=== PATIENT | male | born 1965 | race Caucasian/White ===

== ENCOUNTER 2016-12-20 21:58 | Emergency (ER) | payer SELFPAY ==
[~2016-12-20] VITALS: Ht 182.9 cm; Wt 95.5 kg
[~2016-12-20 21:58] MED LIST: HYDR200T42 PO; PRED50TA PO
[2016-12-20 22:01] VITALS: BP 134/77; PULSE 100; RESP 16; TEMP 98.9; O2SAT 100
[2016-12-21 00:08] VITALS: O2SAT 98
--- NOTE | 2016-12-21 00:08 | PD ---
HPI Chief Complaint: Skin Problem Time Seen by Provider: 23:46 Travel History International Travel<30 days: No Contact w/Intl Traveler<30days: No Traveled to known affect area: No History of Present Illness HPI 51-year-old male complains of pain swelling redness to the right elbow. Patient states that he injured himself by pulling on a lawnmower a week ago. Patient states that he has increasing redness swelling tenderness the right elbow since then. Patient states that he has a lesion that popped open the right elbow for the past week also. Patient states that he has an open lesion in the right elbow in the past. Patient denies any fever chills.. Patient denies any puncture wound to right elbow. Patient is up-to-date with TD booster. PFSH Past Medical History Immunizations Current: Yes Tetanus Vaccination: < 5 Years Influenza Vaccination: Yes Past Surgical History Other Surgery: Yes (REMOVED A LITER OF FLUID FROM AROUND HEART) Social History Alcohol Use: No Tobacco Use: Yes (1 PPD) Substance Use: Yes ("COKE" ABUSE-PT STS HE DID A LINE TONIGHT) Allergies-Medications (Allergen,Severity, Reaction): Coded Allergies: No Known Allergies (Verified , 12/20/16) Reported Meds & Prescriptions Reported Meds & Active Scripts Active Review of Systems General / Constitutional: No: Fever Eyes: No: Visual changes HENT: No: Headaches Cardiovascular: No: Chest Pain or Discomfort Respiratory: No: Shortness of Breath Gastrointestinal: No: Abdominal Pain Genitourinary: No: Dysuria Musculoskeletal: Positive: Edema, Pain Skin: No Rash Neurologic: No: Weakness Psychiatric: No: Depression Endocrine: No: Polydipsia Hematologic/Lymphatic: No: Easy Bruising Physical Exam Narrative GENERAL: Well-nourished, well-developed patient. SKIN: Focused skin assessment warm/dry. HEAD: Normocephalic. EYES: No scleral icterus. No injection or drainage. NECK: Supple, trachea midline. No JVD or lymphadenopathy. CARDIOVASCULAR: Regular rate and rhythm without murmurs, gallops, or rubs. RESPIRATORY: Breath sounds equal bilaterally. No accessory muscle use. GASTROINTESTINAL: Abdomen soft, non-tender, nondistended. MUSCULOSKELETAL: No cyanosis, or edema. BACK: Nontender without obvious deformity. No CVA tenderness. Patient has redness swelling edema with mild tenderness on the right elbow. Limited range of motion of the elbow secondary to pain. Small puncture wound noted was aspect the right elbow joint. Clear discharge noted. Sensorimotor function distally intact. Data Data Last Documented VS Vital Signs Date Time Temp Pulse Resp B/P (MAP) Pulse Ox O2 Delivery O2 Flow Rate FiO2 12/21/16 00:08 98 Room Air 12/20/16 22:01 98.9 100 16 Orders Orders Complete Blood Count With Diff (12/20/16 23:52) Basic Metabolic Panel (Bmp) (12/20/16 23:52) Blood Culture (12/20/16 23:52) Iv Access Insert/Monitor (12/20/16 23:52) Ecg Monitoring (12/20/16 23:52) Oximetry (12/20/16 23:52) Elbow, Limited (Ap&Lat) (12/20/16 23:52) Wound Culture And Gram Stain (12/20/16 23:53) Labs Laboratory Tests Test 12/20/16 23:59 White Blood Count 11.9 TH/MM3 Red Blood Count 4.03 MIL/MM3 Hemoglobin 12.0 GM/DL Hematocrit 35.2 % Mean Corpuscular Volume 87.3 FL Mean Corpuscular Hemoglobin 29.7 PG Mean Corpuscular Hemoglobin Concent 34.0 % Red Cell Distribution Width 13.3 % Platelet Count 502 TH/MM3 Mean Platelet Volume 6.0 FL Neutrophils (%) (Auto) 71.1 % Lymphocytes (%) (Auto) 14.7 % Monocytes (%) (Auto) 5.6 % Eosinophils (%) (Auto) 7.9 % Basophils (%) (Auto) 0.7 % Neutrophils # (Auto) 8.5 TH/MM3 Lymphocytes # (Auto) 1.8 TH/MM3 Monocytes # (Auto) 0.7 TH/MM3 Eosinophils # (Auto) 0.9 TH/MM3 Basophils # (Auto) 0.1 TH/MM3 CBC Comment DIFF FINAL Differential Comment Blood Urea Nitrogen 6 MG/DL Creatinine 0.74 MG/DL Random Glucose 95 MG/DL Calcium Level 9.0 MG/DL Sodium Level 125 MEQ/L Potassium Level 4.0 MEQ/L Chloride Level 90 MEQ/L Carbon Dioxide Level 27.2 MEQ/L Anion Gap 8 MEQ/L Estimat Glomerular Filtration Rate 112 ML/MIN MDM Medical Decision Making Medical Screen Exam Complete: Yes Emergency Medical Condition: Yes Interpretation(s) Last Impressions Elbow X-Ray 12/20/16 [id number] Signed Impressions: Service Date/Time: Wednesday, December 21, 2016 00:06 - CONCLUSION: Prominent soft tissue swelling primarily in the region of the posterior elbow. No subcutaneous emphysema or radiopaque foreign bodies. No evidence for significant bony erosion. Hany Oneill MD 02 43 AM. He received WBC 11.9. Hemoglobin 12.0 hematocrit 35.2. Platelet 502. 71 neutrophil. Sodium 125. Differential Diagnosis Differential diagnosis including cellulitis, abscess, septic joint. Narrative Course 51-year-old male with redness swelling tenderness right elbow and a small draining lesion on the right elbow. Vancomycin 1 g IV given. Diagnosis Primary Impression: Cellulitis of right elbow Patient Instructions: General Instructions Additional Instructions: Take antibiotics as directed. Wound care daily. Follow-up with personal physician. Return if increasing redness swelling or worse. Med/Other Pt SpecificInfo: Prescription(s) given Scripts Clindamycin (Clindamycin) 150 Mg Cap 2 TAB PO Q6H for Infection, #80 CAP 0 Refills Prov: Parish Turcios MD 12/21/16 Sulfamethoxazole-Trimethoprim (Bactrim DS) 800-160 Mg Tab 1 TAB PO BID for Infection, #20 TAB 0 Refills Prov: Parish Turcios MD 12/21/16 Disposition: 01 DISCHARGE HOME Condition: Stable Parish Turcios MD Dec 21, 2016 00:08
[2016-12-21 00:16] LABS: AUTOMATED NEUTROPHIL # 8.5 TH/MM3 (1.8-7.7); BASOPHIL # 0.1 TH/MM3 (0-0.2); BASOPHIL % 0.7 % (0.0-2.0); EOSINOPHIL # 0.9 TH/MM3 (0-0.4); EOSINOPHIL % 7.9 % (0.0-4.0); HEMATOCRIT 35.2 % (39.0-51.0); HEMO FLAGS DIFF FINAL; LYMPH % 14.7 % (9.0-44.0); LYMPHOCYTE # 1.8 TH/MM3 (1.0-4.8); MEAN CELL VOLUME 87.3 FL (80.0-100.0); MEAN CORPUSCULAR HEMOGLOBIN 29.7 PG (27.0-34.0); MONO % 5.6 % (0.0-8.0); NEUT % 71.1 % (16.0-70.0); PLATELET COUNT 502 TH/MM3 (150-450); RED BLOOD COUNT 4.03 MIL/MM3 (4.50-5.90); RED CELL DISTRIBUTION WIDTH 13.3 % (11.6-17.2); WHITE BLOOD COUNT 11.9 TH/MM3 (4.0-11.0)
[2016-12-21 00:41] LABS: BICARBONATE 27.2 MEQ/L (21.0-32.0)
--- NOTE | 2016-12-21 00:53 | RADRPT ---
EXAM DATE/TIME: 12/21/2016 00:06 [facility] COMPARISON: No previous studies available for comparison. INDICATIONS : Redness and swelling right elbow. MEDICAL HISTORY : None. SURGICAL HISTORY : None. ENCOUNTER: Initial ACUITY: 3 days PAIN SCORE: 5/10 LOCATION: Right elbow. FINDINGS: Prominent soft tissue swelling is noted primarily in the region of the posterior elbow. No significan t radiopaque foreign bodies or subcutaneous emphysema. Osseous structures appear intact without evide nce for a significant erosive change or acute fracture. No significant joint effusion. CONCLUSION: Prominent soft tissue swelling primarily in the region of the posterior elbow. No subcutaneous emphys mi or radiopaque foreign bodies. No evidence for significant bony erosion. Hany Oneill MD on December 21, 2016 at 0:50 Board Certified Radiologist. This report was verified electronically.
[2016-12-21] MEDS ORDERED: CLIN1CAP5 PO (02:50)
[2016-12-21] MEDS ORDERED: BACT800T5 PO (02:50)
[2016-12-21] MEDS ORDERED: SULFAMETHOXAZOLE-TRIMETHOPRIM DS 800-160 MG TAB PO ONE (03:00)
[2016-12-21] MEDS ORDERED: CLINDAMYCIN 150 MG CAP PO ONE (03:00)
== END 2016-12-21 03:31 | disposition home or self-care (01) ==
LOC: NEPC 21:58
DX: L03.113 Cellulitis of right upper limb (principal); F17.200 Nicotine dependence, unspecified, uncomplicated
CPT/HCPCS: 73070; 80048; 85025; 87040; 87070; 99284

== ENCOUNTER 2017-05-31 21:21 | Inpatient (IN) | payer SELFPAY ==
[~2017-05-31] VITALS: Ht 182.9 cm; Wt 100.0 kg
[2017-05-31 21:21] VITALS: BP 179/93; PULSE 121; RESP 20; TEMP 98.8; O2SAT 99
[~2017-05-31 21:21] MED LIST changes: +BACT800T5 PO; +CLIN150C14 PO; -HYDR200T42 PO; -PRED50TA PO
[2017-05-31] MEDS ORDERED: SODIUM CHLOR 0.9% 1000 ML INJ 1,000 ML IV ONE (21:45)
[2017-05-31] MEDS ORDERED: methylPREDNISolone SOD SUCC 125 MG/2 ML VIAL IV PUSH ONE (21:45)
[2017-05-31 22:13] LABS: AUTOMATED NEUTROPHIL # 3.4 TH/MM3 (1.8-7.7); BASOPHIL % 0.9 % (0.0-2.0); EOSINOPHIL # 0.4 TH/MM3 (0-0.4); EOSINOPHIL % 6.2 % (0.0-4.0); HEMATOCRIT 30.5 % (39.0-51.0); LYMPHOCYTE # 1.6 TH/MM3 (1.0-4.8); MEAN CELL VOLUME 83.7 FL (80.0-100.0); MEAN CORPUSCULAR HGB CONC 35.9 % (32.0-36.0); MEAN PLATELET VOLUME 5.6 FL (7.0-11.0); MONO % 7.4 % (0.0-8.0); MONOCYTE # 0.4 TH/MM3 (0-0.9); NEUT % 57.5 % (16.0-70.0); PLATELET COUNT 485 TH/MM3 (150-450); RED BLOOD COUNT 3.65 MIL/MM3 (4.50-5.90); RED CELL DISTRIBUTION WIDTH 14.1 % (11.6-17.2); WHITE BLOOD COUNT 5.9 TH/MM3 (4.0-11.0)
--- NOTE | 2017-05-31 22:27 | RADRPT ---
EXAM DATE/TIME: 05/31/2017 22:06 [facility] COMPARISON: ELBOW RIGHT LIMITED (AP & LAT), December 21, 2016, 0:06. INDICATIONS : Right elbow pain and swelling with no known injury, MEDICAL HISTORY : None. SURGICAL HISTORY : None. ENCOUNTER: Initial ACUITY: 3 days PAIN SCORE: 10/10 LOCATION: Right elbow. FINDINGS: There is extensive soft tissue swelling which has progressed since the prior examination diffusely. T here is destruction of the proximal ulna near the articulation of the capitellum some destruction of the medial epicondyle near the joint space as well. Possibility of septic arthritis should be enterta ined. CONCLUSION: Significant worsening of soft tissue swelling since the prior examination with interval development o f lytic destructive lesions of the proximal ulna and capitellum and the possibility of septic arthrit is should be entertained in the appropriate clinical setting. Malcom Gonzalez MD on May 31, 2017 at 22:23 Board Certified Radiologist. This report was verified electronically.
[2017-05-31 22:31] LABS: ALBUMIN 3.2 GM/DL (3.4-5.0); ALT (GPT) 9 U/L (12-78); AST (GOT) 11 U/L (15-37); BLOOD UREA NITROGEN 6 MG/DL (7-18); CHLORIDE 90 MEQ/L (98-107); CREATININE 0.64 MG/DL (0.60-1.30); GLOMERULAR FILTRATION RATE 132 ML/MIN (>89); GLUCOSE,RANDOM 92 MG/DL (74-106); SODIUM (NA) 126 MEQ/L (136-145)
--- NOTE | 2017-05-31 22:37 | PD ---
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 Patient denies numbness or tingling. He states that he often had a flare of Still's disease and this elbow but states that he has been increasingly weak in the joint over the last few days. He endorses daily fevers. He denies nausea, vomiting. He is not currently taking any medications. He endorses occasional alcoholic drinks, occasional cocaine use and is a current cigarette smoker. PFSH Past Medical History Asthma: Yes Immunizations Current: Yes Past Surgical History Other Surgery: Yes (REMOVED A LITER OF FLUID FROM AROUND HEART) Social History Alcohol Use: No Tobacco Use: Yes (1 PPD) Substance Use: Yes ("COKE" -PT STS HE DID A LINE YESTERDAY) Allergies-Medications (Allergen,Severity, Reaction): Coded Allergies: No Known Allergies (Verified Allergy, Unknown, 05/31/17) Reported Meds & Prescriptions Reported Meds & Active Scripts Active Clindamycin (Clindamycin HCl) 150 Mg Cap 2 Tab PO Q6H Bactrim DS (Sulfamethoxazole-Trimethoprim) 800-160 Mg Tab 1 Tab PO BID Review of Systems Except as stated in HPI: all other systems reviewed are Neg Physical Exam Narrative GENERAL: Well-nourished, well-developed white male in no acute distress. SKIN: Focused skin assessment warm/dry. Patchy erythematous blanching plaques over the chest and shoulders. HEAD: Normocephalic. EYES: No scleral icterus. No injection or drainage. NECK: Supple, trachea midline. No JVD or lymphadenopathy. CARDIOVASCULAR: Regular rate and rhythm without murmurs, gallops, or rubs. RESPIRATORY: Breath sounds equal bilaterally. No accessory muscle use. GASTROINTESTINAL: Abdomen soft, non-tender, nondistended. MUSCULOSKELETAL: No cyanosis, or edema. FOCUSED RIGHT UPPER EXTREMITY EXAM: 2+ radial pulse. The elbow is warm, erythematous, tender. Patient is unable to fully extend the joint. He is guarding the elbow, using the opposite hand to move the right arm. BACK: Nontender without obvious deformity. No CVA tenderness. Data Data Last Documented VS Vital Signs Date Time Temp Pulse Resp B/P (MAP) Pulse Ox O2 Delivery O2 Flow Rate FiO2 05/31/17 22:59 84 18 177/86 (116) 99 Room Air 05/31/17 21:21 98.8 Orders Orders Complete Blood Count With Diff (05/31/17 21:41) Iv Access Insert/Monitor (05/31/17 21:41) Comprehensive Metabolic Panel (05/31/17 21:41) Westergren Sedimentation Rate (05/31/17 21:41) C-Reactive Protein (Crp) (05/31/17 21:41) Lactic Acid (05/31/17 21:41) Elbow, Complete (4 Vws) (05/31/17 21:41) Ice/Cold Pack (05/31/17 21:41) Drug Screen, Random Urine (05/31/17 21:41) Methylprednisolone So Succ Inj (Solumedr (05/31/17 21:45) Sodium Chlor 0.9% 1000 Ml Inj (Ns 1000 M (05/31/17 21:45) Sepsis Workup Initiated (05/31/17 21:41) Blood Culture (05/31/17 22:33) Vancomycin Inj (Vancomycin Inj) (05/31/17 22:45) Morphine Inj (Morphine Inj) (05/31/17 23:00) Piperacil-Tazo 4.5 Gm Premix (Zosyn 4.5 (05/31/17 23:00) Consult Rheumatology (05/31/17 ) Consult Orthopedic (05/31/17 ) Admit Order (Ed Use Only) (05/31/17 23:19) Labs Laboratory Tests Test 05/31/17 22:00 White Blood Count 5.9 TH/MM3 Red Blood Count 3.65 MIL/MM3 Hemoglobin 11.0 GM/DL Hematocrit 30.5 % Mean Corpuscular Volume 83.7 FL Mean Corpuscular Hemoglobin 30.0 PG Mean Corpuscular Hemoglobin Concent 35.9 % Red Cell Distribution Width 14.1 % Platelet Count 485 TH/MM3 Mean Platelet Volume 5.6 FL Neutrophils (%) (Auto) 57.5 % Lymphocytes (%) (Auto) 28.0 % Monocytes (%) (Auto) 7.4 % Eosinophils (%) (Auto) 6.2 % Basophils (%) (Auto) 0.9 % Neutrophils # (Auto) 3.4 TH/MM3 Lymphocytes # (Auto) 1.6 TH/MM3 Monocytes # (Auto) 0.4 TH/MM3 Eosinophils # (Auto) 0.4 TH/MM3 Basophils # (Auto) 0.0 TH/MM3 CBC Comment DIFF FINAL Differential Comment Erythrocyte Sedimentation Rate 109 mm/hr Blood Urea Nitrogen 6 MG/DL Creatinine 0.64 MG/DL Random Glucose 92 MG/DL Total Protein 7.9 GM/DL Albumin 3.2 GM/DL Calcium Level 9.0 MG/DL Alkaline Phosphatase 99 U/L Aspartate Amino Transf (AST/SGOT) 11 U/L Alanine Aminotransferase (ALT/SGPT) 9 U/L Total Bilirubin 0.3 MG/DL Sodium Level 126 MEQ/L Potassium Level 4.0 MEQ/L Chloride Level 90 MEQ/L Carbon Dioxide Level 28.0 MEQ/L Anion Gap 8 MEQ/L Estimat Glomerular Filtration Rate 132 ML/MIN Lactic Acid Level 0.7 mmol/L C-Reactive Protein 11.00 MG/DL [facility] Medical Decision Making Medical Screen Exam Complete: Yes Emergency Medical Condition: Yes Differential Diagnosis Cellulitis versus sepsis versus bursitis versus Still's disease versus gout versus septic arthritis versus other Narrative Course 52-year-old male with PMH of Still's disease presents to the ED for evaluation one-week history of warm, tender erythema and limited range of motion of the right elbow. Patient afebrile, pulse 121 on presentation. Physical exam reveals the right elbow is warm, erythematous, edematous, tender to palpation. Patient is unable to extend the arm to 0. He is guarding the arm and unwilling to attempt range of motion. He uses the left hand to move the right arm. IV was established. Patient was administered IV Solu-Medrol, 1 L normal saline, 4 mg morphine IV. CBC: WBC 5.9, hemoglobin 11 CMP sodium 126, chloride 90. BUN 6, creatinine 0.64. Lactic acid 0.7. C-reactive protein 11.0. Sedimentation rate: Pending X-ray right elbow: Significant worsening of soft tissue swelling since the prior exam with interval development of lytic distractive lesions of the proximal ulna and capitulum and the possibility of septic arthritis should be entertained in the appropriate clinical setting. I discussed the results of the workup with the patient. He is agreeable to admission. Blood cultures were obtained. Patient was administered IV Zosyn and vancomycin. Consult placed with Rheumatology. Consult placed with Orthopedics. I spoke with Dr. Castaneda who agrees to accept the patient to the medicine service. Please see medicine notes for disposition. Meena Luna May 31, 2017 22:37
[2017-05-31 22:38] LABS: ALKALINE PHOSPHATASE 99 U/L (45-117); TOTAL BILIRUBIN ADULT 0.3 MG/DL (0.2-1.0); TOTAL PROTEIN 7.9 GM/DL (6.4-8.2)
[2017-05-31] MEDS ORDERED: VANCOMYCIN INJ 1,000 MG in SODIUM CHLOR 0.9% 250 ML INJ 250 ML IV ONE (22:45)
[2017-05-31 22:59] VITALS: BP 177/86; PULSE 84; RESP 18; O2SAT 99
[2017-05-31] MEDS ORDERED: MORPHINE SULFATE 2 MG/ML INJ IV PUSH ONE (23:00)
[2017-05-31] MEDS ORDERED: PIPERACIL-TAZO 4.5 GM PREMIX 100 ML IV ONE (23:00)
--- NOTE | 2017-05-31 23:35 | HHI.HP ---
[facility] No Primary Care Physician Admission Diagnosis cellulitis right elbow Diagnoses: Chief Complaint: right elbow pain and redness Travel History International Travel<30 Days: No Contact w/Intl Traveler <30 Da: No Traveled to Known Affected Are: No History of Present Illness 52 y/o male with a history of Stills disease (not on medication) presented to the ED with complaints of right elbow swelling and tenderness. He states for the last week his symptoms have become worse. He states the pain to his right elbow is throbbing, constant, 8/10, worse with movement with radiation up his arm. No associated symptoms and pain medications has helped. He has had fever and chills at home. He does not take medication for his stills disease due to lack of insurance. He state Plaquenil use to help but it was making his eye sight bad so he stopped tacking it. He denies any chest pain, or sob. Review of Systems Except as stated in HPI: all other systems reviewed are Neg Past Family Social History Past Medical History Stills disease Past Surgical History left hand surgery Reported Medications Reported Meds & Active Scripts Active Clindamycin (Clindamycin HCl) 150 Mg Cap 2 Tab PO Q6H Bactrim DS (Sulfamethoxazole-Trimethoprim) 800-160 Mg Tab 1 Tab PO BID Allergies: Coded Allergies: No Known Allergies (Verified Allergy, Unknown, 05/31/17) Active Ordered Medications Current Medications Medications (Trade) Dose Ordered Sig/Dayne Route Start Time Stop Time Status Last Admin Vancomycin HCl 1000 mg/Sodium Chloride 250 ml @ 250 mls/hr ONCE ONCE IV 05/31/17 22:45 05/31/17 23:44 05/31/17 22:57 Family History Mom: DM, stomach cancer Dad: HTN, heart disease, DM Social History Tobacco use: 1 pack per week Alcohol use: Denies Illicit drug use: Denies Physical Exam Vital Signs Vital Signs Date Time Temp Pulse Resp B/P (MAP) Pulse Ox O2 Delivery O2 Flow Rate FiO2 05/31/17 22:59 84 18 177/86 (116) 99 Room Air 05/31/17 21:21 98.8 121 20 179/93 (121) 99 Room Air Physical Exam GENERAL: This is a well-nourished, well-developed patient, in no apparent distress. SKIN: Red raised hives on trunk, bilateral upper extremities and chest. HEAD: Atraumatic. Normocephalic. No temporal or scalp tenderness. EYES: Pupils equal round and reactive. Extraocular motions intact. ENT: Nose without bleeding, purulent drainage or septal hematoma. Airway patent. NECK: Trachea midline. No JVD or lymphadenopathy. CARDIOVASCULAR: Regular rate and rhythm without murmurs, gallops, or rubs. RESPIRATORY: Clear to auscultation. Breath sounds equal bilaterally. No wheezes , rales, or rhonchi. GASTROINTESTINAL: Abdomen soft, non-tender, nondistended. MUSCULOSKELETAL: Right elbow warm, red, edematous and tender. Unable to bend elbow, limited rom. NEUROLOGICAL: Awake and alert. Motor and sensory grossly within normal limits. Normal speech. Laboratory Laboratory Tests Test 05/31/17 22:00 White Blood Count 5.9 Red Blood Count 3.65 Hemoglobin 11.0 Hematocrit 30.5 Mean Corpuscular Volume 83.7 Mean Corpuscular Hemoglobin 30.0 Mean Corpuscular Hemoglobin Concent 35.9 Red Cell Distribution Width 14.1 Platelet Count 485 Mean Platelet Volume 5.6 Neutrophils (%) (Auto) 57.5 Lymphocytes (%) (Auto) 28.0 Monocytes (%) (Auto) 7.4 Eosinophils (%) (Auto) 6.2 Basophils (%) (Auto) 0.9 Neutrophils # (Auto) 3.4 Lymphocytes # (Auto) 1.6 Monocytes # (Auto) 0.4 Eosinophils # (Auto) 0.4 Basophils # (Auto) 0.0 CBC Comment DIFF FINAL Differential Comment Blood Urea Nitrogen 6 Creatinine 0.64 Random Glucose 92 Total Protein 7.9 Albumin 3.2 Calcium Level 9.0 Alkaline Phosphatase 99 Aspartate Amino Transf (AST/SGOT) 11 Alanine Aminotransferase (ALT/SGPT) 9 Total Bilirubin 0.3 Sodium Level 126 Potassium Level 4.0 Chloride Level 90 Carbon Dioxide Level 28.0 Anion Gap 8 Estimat Glomerular Filtration Rate 132 Lactic Acid Level 0.7 C-Reactive Protein 11.00 Date/Time Source Procedure Growth Status 05/31/17 22:50 Blood Line Aerobic Blood Culture Pending Received 05/31/17 22:50 Blood Line Anaerobic Blood Culture Pending Received Result Diagram: 05/31/17219905/31/172199 Imaging Last Impressions Elbow X-Ray 05/31/172140 Signed Impressions: Service Date/Time: Wednesday, May 31, 2017 22:06 - CONCLUSION: Significant worsening of soft tissue swelling since the prior examination with interval development of lytic destructive lesions of the proximal ulna and capitellum and the possibility of septic arthritis should be entertained in the appropriate clinical setting. MD Ernie Franco VTE Risk Assessment Caprinradha VTE Risk Assessment: No/Low Risk (score <= 1) Caprini Risk Assessment Model Point Value = 1 Point Value = 2 Point Value = 3 Point Value = 5 Age 41-60 Minor surgery BMI > 25 kg/m2 Swollen legs Varicose veins or History of unexplained or recurrent spontaneous Oral contraceptives or hormone replacement Sepsis (< 1 month) Serious lung disease, including pneumonia (< 1 month) Abnormal pulmonary function Acute myocardial infarction Congestive heart failure (< 1 month) History of inflammatory bowel disease Medical patient at bed rest Age 61-74 Arthroscopic surgery Major open surgery (> 45 min) Laparoscopic surgery (> 45 min) Malignancy Confined to bed (> 72 hours) Immobilizing plaster cast Central venous access Age >= 75 History of VTE Family history of VTE Factor V Leiden Prothrombin [id number] Lupus anticoagulant Anticardiolipin antibodies Elevated serum homocysteine Heparin-induced thrombocytopenia Other congenital or acquired thrombophilia Stroke (< 1 month) Elective arthroplasty Hip, pelvis, or leg fracture Acute spinal cord injury (< 1 month) Prophylaxis Regimen Total Risk Factor Score Risk Level Prophylaxis Regimen 0-1 Low Early ambulation 2 Moderate Order ONE of the following: *Sequential Compression Device (SCD) *Heparin 5000 units SQ BID 3-4 Higher Order ONE of the following medications: *Heparin 5000 units SQ TID *Enoxaparin/Lovenox 40 mg SQ daily (WT < 150 kg, CrCl > 30 mL/min) *Enoxaparin/Lovenox 30 mg SQ daily (WT < 150 kg, CrCl > 10-29 mL/min) *Enoxaparin/Lovenox 30 mg SQ BID (WT < 150 kg, CrCl > 30 mL/min) AND/OR *Sequential Compression Device (SCD) 5 or more Highest Order ONE of the following medications: *Heparin 5000 units SQ TID (Preferred with Epidurals) *Enoxaparin/Lovenox 40 mg SQ daily (WT < 150 kg, CrCl > 30 mL/min) *Enoxaparin/Lovenox 30 mg SQ daily (WT < 150 kg, CrCl > 10-29 mL/min) *Enoxaparin/Lovenox 30 mg SQ BID (WT < 150 kg, CrCl > 30 mL/min) AND *Sequential Compression Device (SCD) Assessment and Plan Problem List: (1) Septic arthritis ICD Code: M00.9 - Pyogenic arthritis, unspecified (2) 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 Right elbow pain suspect possible Septic arthritis with underlining stills disease CRP 11.0 Elbow x ray shows soft tissue swelling with interval development of lytic destructive lesions of the proximal ulna and capitellum and possibility of septic arthritis. -Consult orthopedics for recommendations -IV antibiotics: Zosyn and Vanco -Pain management with IV morphine and Toradol -IV solumedrol -CT arm ordered r/o abscess Still Disease, chronic -Consult placed for Rheumatology, but to my knowledge we do not have a insurance associate, patient will need follow up out patient. DVT prophylaxis: SCDs Discussed Condition With Patient, RN and Tori Loredo May 31, 2017 23:35
[2017-05-31] MEDS ORDERED: Vancomycin Consult Pharmacy 1 EA OTHER SCH (23:45)
[2017-05-31] MEDS ORDERED: NALOXONE HCL 0.4 MG/ML AMP IV PUSH PRN (23:45)
[2017-06-01 00:24] VITALS: BP 162/79; PULSE 81; RESP 20; TEMP 98; O2SAT 98
[2017-06-01] MEDS ORDERED: KETOROLAC TROMETHAMINE 30 MG/ML (IVP) VIAL IV PUSH PRN (00:45)
[2017-06-01] MEDS: MORPHINE SULFATE 2 MG/ML INJ IV PUSH PRN ×4 (03:45→21:52)
[2017-06-01] MEDS: FAMOTIDINE 20 MG/2 ML VIAL IV PUSH SCH ×2 (03:46→16:00)
[2017-06-01] MEDS: methylPREDNISolone SOD SUCC 40 MG/1 ML VIAL IV PUSH SCH ×4 (03:46→21:56)
[2017-06-01] MEDS: SODIUM CHLORIDE 0.9% FLUSH 10 ML FLUSH IV FLUSH PRN ×2 (03:46→06:00)
--- NOTE | 2017-06-01 03:57 | RADRPT ---
EXAM DATE/TIME: 06/01/2017 03:17 [facility] COMPARISON: ELBOW RIGHT COMPLETE (4 VWS), May 31, 2017, 22:06. ELBOW RIGHT LIMITED (AP & LAT), December, 0:06. INDICATIONS : Cellulitis right elbow. RADIATION DOSE: 21.88 CTDIvol (mGy) MEDICAL HISTORY : Cardiovascular disease. Stills disease SURGICAL HISTORY : None. ENCOUNTER: Initial ACUITY: 1 day PAIN SCALE: 5/10 LOCATION: Right elbow TECHNIQUE: Volumetric scanning of the forearm was performed. Using automated exposure control and adjustment of the mA and/or kV according to patient size, radiation dose was kept as low as reasonably achievable to obtain optimal diagnostic quality images. DICOM format image data is available electronically for review and comparison. FINDINGS: There are destructive changes of the distal humerus at the level of the trochlea, ostial lysis at the level of the radial head and capitellar articulation and the proximal ulna with fragmentation seen. There is diffuse subcutaneous edema and elbow joint effusion is noted. This is characteristic of sept ic arthritis until proven otherwise. There is a hypodense collection in the subcutaneous tissues prox imal forearm measuring 4.1 x 3.7 cm in AP and transverse dimension on image 38 of series 301, and 6.3 cm in sagittal dimension on sagittal image 19 of series 305. CONCLUSION: Destructive changes centered at the elbow joint with associated effusion, and this is characteristic of septic arthritis. There is cellulitis, subcutaneous edema, and an abscess of the proximal forearm. Ole Stallworth MD on June 01, 2017 at 3:51 Board Certified Radiologist. This report was verified electronically.
[2017-06-01 04:00] VITALS: BP 146/80; PULSE 87; RESP 15; TEMP 98.4; O2SAT 98
[2017-06-01] MEDS: PIPERACIL-TAZO 4.5 GM PREMIX 100 ML IV SCH ×3 (06:00→18:00)
[2017-06-01 07:21] LABS: BASOPHIL % 0.2 % (0.0-2.0); HEMATOCRIT 34.1 % (39.0-51.0); LYMPH % 13.3 % (9.0-44.0); LYMPHOCYTE # 0.5 TH/MM3 (1.0-4.8); MEAN CELL VOLUME 84.5 FL (80.0-100.0); MEAN CORPUSCULAR HEMOGLOBIN 29.8 PG (27.0-34.0); MEAN CORPUSCULAR HGB CONC 35.2 % (32.0-36.0); MEAN PLATELET VOLUME 5.8 FL (7.0-11.0); NEUT % 85.5 % (16.0-70.0); PLATELET COUNT 527 TH/MM3 (150-450); RED BLOOD COUNT 4.03 MIL/MM3 (4.50-5.90); RED CELL DISTRIBUTION WIDTH 14.4 % (11.6-17.2); WHITE BLOOD COUNT 3.5 TH/MM3 (4.0-11.0)
[2017-06-01 07:39] LABS: BICARBONATE 25.7 MEQ/L (21.0-32.0); CALCIUM 9.3 MG/DL (8.5-10.1); CREATININE 0.74 MG/DL (0.60-1.30)
[2017-06-01 08:00] VITALS: BP 153/75; PULSE 89; RESP 20; TEMP 98.2; O2SAT 98
[2017-06-01] MEDS: SODIUM CHLORIDE 0.9% FLUSH 10 ML FLUSH IV FLUSH SCH ×2 (08:36→21:57)
[2017-06-01] MEDS: VANCOMYCIN INJ 1,500 MG in SODIUM CHLORID 0.9% 500 ML INJ 500 ML IV SCH ×2 (10:28→21:53)
[2017-06-01] MEDS ORDERED: LACTATED RINGER'S 1000 ML INJ 1,000 ML IV ONE (12:00)
[2017-06-01] MEDS ORDERED: PROPOFOL 200 MG/20 ML AMP IV ONE (12:00)
[2017-06-01] MEDS ORDERED: LIDOCAINE HCL 1% PF 5 ML SYRINGE OTHER ONE (12:00)
[2017-06-01] MEDS ORDERED: ONDANSETRON HCL 4 MG/2 ML VIAL IV ONE (12:00)
[2017-06-01 12:57] VITALS: BP 159/88; PULSE 95; RESP 20; TEMP 99.1; O2SAT 96
--- NOTE | 2017-06-01 13:43 | PD.CONS ---
History of Present Illness Service Infectious disease Consult Requested By Dr Carline Duran Reason for Consult Evaluate patient with osteomyelitis right elbow Primary Care Physician No Primary Care Physician Diagnoses: History of Present Illness Patient seen and examined. Records reviewed. 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 His right elbow started having problem back in December 2016. He apparently had a little bit of injury, and developed redness and swelling. He presented to the emergency room at that time, and he was treated for cellulitis. Since that time he has had problem with range of motion in that elbow, and has had recurrent swelling and pain associated with it. He has not really had any diagnostic testing on that elbow. Patient also has had this skin rash that comes and goes as well and part of his still's disease. Recently probably in the last 1 week, he has developed swelling pain and decreased range of motion on his right elbow, as well as recurrence of his rash. No documented fevers. He also has been having problem with his right shoulder since he is not really doing moving much his right upper extremity. No specific respiratory complaints. No GI or any urinary complaints. Since presentation to the ED he has not had any fever. Imaging study in his right upper extremity showed findings of osteomyelitis, and there is also presence of an effusion in his right elbow. His WBC is 3.5. His sed rate is 109. Infectious disease consultation has been requested to assist with evaluation and treatment Review of Systems Constitutional: DENIES: Fever, Chills Eyes: DENIES: Eye pain Ears, nose, mouth, throat: DENIES: Nasal discharge, Oral lesions, Throat pain, Ear Pain Respiratory: DENIES: Cough, Shortness of breath Cardiovascular: DENIES: Chest pain, Palpitations, Dyspnea on Exertion Gastrointestinal: DENIES: Abdominal pain, Constipation, Diarrhea, Nausea, Vomiting Genitourinary: DENIES: Urgency, Hematuria Musculoskeletal: COMPLAINS OF: Joint pain, Stiffness, Joint Swelling, Back pain Integumentary: COMPLAINS OF: Rash Neurologic: DENIES: Localized weakness Psychiatric: DENIES: Hallucinations Past Family Social History Allergies: Coded Allergies: No Known Allergies (Verified Allergy, Unknown, 05/31/17) Past Medical History Still's disease Asthma Treatment for cellulitis in the right elbow December 2016 Past Surgical History Left hand surgery Active Ordered Medications Current Medications Medications (Trade) Dose Ordered Sig/Dayne Route Start Time Stop Time Status Last Admin (NS Flush) 2 ml UNSCH PRN IV FLUSH 05/31/17 23:45 06/01/17 06:00 (NS Flush) 2 ml BID IV FLUSH 06/01/17 09:00 06/01/17 08:36 (Narcan Inj) 0.4 mg UNSCH PRN IV PUSH 05/31/17 23:45 Pharmacy Profile Note 0 ml @ 0 mls/hr UNSCH OTHER 05/31/17 23:45 Piperacillin Sod/ Tazobactam Sod 100 ml @ 200 mls/hr Q6H IV 06/01/17 06:00 06/01/17 13:00 (Morphine Inj) 2 mg Q3H PRN IV PUSH 05/31/17 23:45 06/01/17 11:41 (SoluMEDROL INJ) 40 mg Q6H IV PUSH 06/01/17 03:00 06/01/17 08:36 (Toradol Inj) 30 mg Q6H PRN IV PUSH 06/01/17 00:45 (Pepcid Inj) 20 mg Q12H IV PUSH 06/01/17 04:00 06/01/17 03:46 Vancomycin HCl 1500 mg/Sodium Chloride 515 ml @ 250 mls/hr Q12H IV 06/01/17 10:00 06/01/17 10:28 Miscellaneous Information SPECIFIC LAB TO BE DRAWN:VANCOMYCIN TROUGH DATE TO... ONCE ONCE .XX 06/03/17 09:45 06/03/17 09:46 Family History DM Gastric CA Social History Tobacco use: 1 pack per week Alcohol use: Denies Illicit drug use: Denies Physical Exam Vital Signs Vital Signs Date Time Temp Pulse Resp B/P (MAP) Pulse Ox O2 Delivery O2 Flow Rate FiO2 06/01/17 12:57 99.1 95 20 159/88 (111) 96 06/01/17 08:00 98.2 89 20 153/75 (101) 98 06/01/17 04:00 98.4 87 15 146/80 (102) 98 06/01/17 00:24 98.0 81 20 162/79 (106) 98 05/31/17 22:59 84 18 177/86 (116) 99 Room Air 05/31/17 21:21 98.8 121 20 179/93 (121) 99 Room Air Physical Exam GENERAL: Patient is a well-nourished, well-developed male, awake and alert, not in respiratory distress. SKIN: Warm and moist. Has erythematous maculopapular rash in upper trunk front and back and UE. No ecchymoses and no evidence of embolic lesions. HEAD: Atraumatic. Normocephalic. No temporal wasting, or tenderness. EYES: [place] conjunctiva. No petechia or hemorrhage. Pupils equal, round and reactive to light. Extraocular movements full and intact. No scleral icterus. No injection or drainage. EARS, NOSE AND THROAT: Nose without bleeding or purulent nasal discharge. No sinus tenderness. Mucous membranes pink and moist. No oral lesions noted. No exudate. No oral thrush. NECK: Trachea midline. Supple and not tender, no meningeal signs CARDIOVASCULAR: Regular rate and rhythm. No murmurs, rubs or gallops heard RESPIRATORY: Clear to auscultation. Breath sounds equal bilaterally. No rales , wheezing or rhonchi ABDOMEN: Soft, non-tender, nondistended. Bowel sounds present and normoactive. No guarding. No rebound. No organomegaly. EXTREMITIES: No clubbing, cyanosis. RUE: pain in movement at elbow and shoulder joint. The elbow has effusion and there is cellulitis present; There is a one cm fluctuant area below the elbow. No calf tenderness. Well perfused and warm. NEUROLOGICAL: Awake and alert. Cranial nerves grossly intact. Motor grossly within normal limits. PSYCHIATRIC: Normal affect, calm and cooperative. LINE: No evidence of infection Laboratory Laboratory Tests Test 05/31/17 22:00 06/01/17 07:00 White Blood Count 5.9 3.5 Red Blood Count 3.65 4.03 Hemoglobin 11.0 12.0 Hematocrit 30.5 34.1 Mean Corpuscular Volume 83.7 84.5 Mean Corpuscular Hemoglobin 30.0 29.8 Mean Corpuscular Hemoglobin Concent 35.9 35.2 Red Cell Distribution Width 14.1 14.4 Platelet Count 485 527 Mean Platelet Volume 5.6 5.8 Neutrophils (%) (Auto) 57.5 85.5 Lymphocytes (%) (Auto) 28.0 13.3 Monocytes (%) (Auto) 7.4 1.0 Eosinophils (%) (Auto) 6.2 0.0 Basophils (%) (Auto) 0.9 0.2 Neutrophils # (Auto) 3.4 3.0 Lymphocytes # (Auto) 1.6 0.5 Monocytes # (Auto) 0.4 0.0 Eosinophils # (Auto) 0.4 0.0 Basophils # (Auto) 0.0 0.0 CBC Comment DIFF FINAL DIFF FINAL Differential Comment Erythrocyte Sedimentation Rate 109 Blood Urea Nitrogen 6 6 Creatinine 0.64 0.74 Random Glucose 92 163 Total Protein 7.9 Albumin 3.2 Calcium Level 9.0 9.3 Alkaline Phosphatase 99 Aspartate Amino Transf (AST/SGOT) 11 Alanine Aminotransferase (ALT/SGPT) 9 Total Bilirubin 0.3 Sodium Level 126 130 Potassium Level 4.0 4.1 Chloride Level 90 95 Carbon Dioxide Level 28.0 25.7 Anion Gap 8 9 Estimat Glomerular Filtration Rate 132 112 Lactic Acid Level 0.7 C-Reactive Protein 11.00 Date/Time Source Procedure Growth Status 05/31/17 22:50 Blood Line Aerobic Blood Culture - Preliminary NO GROWTH IN 1 DAY Resulted 05/31/17 22:50 Blood Line Anaerobic Blood Culture - Preliminary NO GROWTH IN 1 DAY Resulted Result Diagram: 06/01/17 0700 06/01/17 0700 Imaging RADIOLOGY STUDIES/FILMS REVIEWED Last Impressions Upper Extremity CT 06/01/17 0000 Signed Impressions: Service Date/Time: May 03:17 - CONCLUSION: Destructive changes centered at the elbow joint with associated effusion, and this is characteristic of septic arthritis. There is cellulitis, subcutaneous edema, and an abscess of the proximal forearm. Ole Stallworth MD Elbow X-Ray [id number]/31/[id number] Signed Impressions: Service Date/Time: Wednesday, May 31, 2017 22:06 - CONCLUSION: Significant worsening of soft tissue swelling since the prior examination with interval development of lytic destructive lesions of the proximal ulna and capitellum and the possibility of septic arthritis should be entertained in the appropriate clinical setting. Malcom Gonzalez MD Assessment and Plan Assessment and Plan IMPRESSION Cellulitis RUE, with destructive changes in elbow and has effusion - possibly with osteomyelitis and septic joint Pain R shoulder, ?due to immobility, ?infection also Still's disease, with active rash, arthritis and arthralgias, not been on Rx RECOMMENDATION Will order Xray of shoulder, may need more imaging studies Ortho has been consulted Continue empiric Abx: Vanco and Zosyn Rheum evaluation would be valuable, but dont think we have any on staff Follow C/S Monitor progress I will determine course of treatment, depending on results of the workup and clinical course I will follow along with you Thank you for this consultation Fernanda Lezama MD Jun 01, 2017 13:42
[2017-06-01] MEDS ORDERED: GENTAMICIN SULFATE 80 MG/2 ML VIAL ONE ×2 (14:07→15:20)
[2017-06-01] MEDS ORDERED: SODIUM CHLORID 0.9% 500 ML IV PRN (15:30)
[2017-06-01] MEDS ORDERED: POVIDONE IODINE 5% (ANTISEPSIS KIT) 4 APPLICATIONS EACH NARE PRN (15:30)
[2017-06-01] MEDS ORDERED: LACTATED RINGER'S 1000 ML IV PRN (15:30)
[2017-06-01] MEDS ORDERED: CHLORHEXIDINE GLUCONATE 2 % 1 PACK (2 CLOTHS) TOPICAL PRN (15:30)
[2017-06-01] MEDS ORDERED: METOPROLOL TARTRATE 25 MG TAB PO PRN (15:30)
--- NOTE | 2017-06-01 16:03 | PD.CONS ---
HPI Service Orthopedic Surgeons Consult Requested By Bjorn Duran M.D. Reason for Consult Possible infection of right elbow Primary Care Physician No Primary Care Physician Admission Diagnosis cellulitis right elbow Diagnoses: (1) Septic arthritis (2) Still's disease Chief Complaint: Right elbow pain with a history of drainage History of Present Illness This patient is a 52-year-old white male. He has a known history of still's disease. The patient indicates that last all he developed cellulitis of the right elbow. Hospital records indicate that he was seen in emergency room for cellulitis and placed on oral antibiotics. The patient indicates that he said swelling on and off since then. He indicates that he has been under the care of a oncology social work and has had multiple episodes of drainage. He also indicates a culture was taken at some point and there was no evidence of a deep infection. The patient presents to emergency room having increasing swelling and pain in the region of the right elbow. Laboratory data shows a Western sedimentation rate greater than 100. White blood cell count is normal. CT of the right elbow shows significant erosive changes the right elbow and findings consistent with evidence of an inflammatory condition right elbow and possible pyogenic arthritis with osteomyelitis. I have been asked to the patient in consultation regarding the same Review of Systems Constitutional: DENIES: Diaphoretic episodes, Fatigue, Fever, Weight gain, Weight loss, Chills, Dizziness, Change in appetite, Night Sweats Eyes: DENIES: Blurred vision, Diplopia, Eye inflammation, Eye pain, Vision loss , Photosensitivity, Double Vision Ears, nose, mouth, throat: DENIES: Tinnitus, Hearing loss, Vertigo, Nasal discharge, Oral lesions, Throat pain, Hoarseness, Ear Pain, Running Nose, Epistaxis, Sinus Pain, Toothache, Odynophagia Respiratory: DENIES: Apneas, Cough, Snoring, Wheezing, Hemoptysis, Sputum production, Shortness of breath Cardiovascular: DENIES: Chest pain, Palpitations, Syncope, Dyspnea on Exertion , PND, Lower Extremity Edema, Orthopnea, Claudication Gastrointestinal: DENIES: Abdominal pain, Black stools, Bloody stools, Constipation, Diarrhea, Nausea, Vomiting, Difficulty Swallowing, Anorexia Genitourinary: DENIES: Sexual dysfunction, Urinary frequency, Urinary incontinence, Urgency, Hematuria, Dysuria, Nocturia, Penile Discharge, Testicular Pain, Testicular Swelling Musculoskeletal: COMPLAINS OF: Joint pain, Muscle aches, Stiffness, Joint Swelling Integumentary: COMPLAINS OF: Rash (right elbow and arm) Hematologic/lymphatic: DENIES: Bruising, Lymphadenopathy Immunologic/allergic: DENIES: Eczema, Urticaria Neurologic: DENIES: Abnormal gait, Headache, Localized weakness, Paresthesias, Seizures, Speech Problems, Tremor, Poor Balance Psychiatric: COMPLAINS OF: Anxiety Past Family Social History Past Medical History Stills disease Past Surgical History left hand surgery Allergies: Coded Allergies: No Known Allergies (Verified Allergy, Unknown, 05/31/17) Active Ordered Medications Current Medications Medications (Trade) Dose Ordered Sig/Dayne Route Start Time Stop Time Status Last Admin (NS Flush) 2 ml UNSCH PRN IV FLUSH 05/31/17 23:45 06/01/17 06:00 (NS Flush) 2 ml BID IV FLUSH 06/01/17 09:00 06/01/17 08:36 (Narcan Inj) 0.4 mg UNSCH PRN IV PUSH 05/31/17 23:45 Pharmacy Profile Note 0 ml @ 0 mls/hr UNSCH OTHER 05/31/17 23:45 Piperacillin Sod/ Tazobactam Sod 100 ml @ 200 mls/hr Q6H IV 06/01/17 06:00 06/01/17 13:00 (Morphine Inj) 2 mg Q3H PRN IV PUSH 05/31/17 23:45 06/01/17 11:41 (SoluMEDROL INJ) 40 mg Q6H IV PUSH 06/01/17 03:00 06/01/17 08:36 (Toradol Inj) 30 mg Q6H PRN IV PUSH 06/01/17 00:45 (Pepcid Inj) 20 mg Q12H IV PUSH 06/01/17 04:00 06/01/17 03:46 Vancomycin HCl 1500 mg/Sodium Chloride 515 ml @ 250 mls/hr Q12H IV 06/01/17 10:00 06/01/17 10:28 Miscellaneous Information SPECIFIC LAB TO BE DRAWN:VANCOMYCIN TROUGH DATE TO... ONCE ONCE .XX 06/03/17 09:45 06/03/17 09:46 Lactated Ringer's 1,000 ml @ 30 mls/hr Q24H PRN IV 06/01/17 15:30 06/04/17 15:29 Sodium Chloride 500 ml @ 30 mls/hr [id number] PRN IV 06/01/17 15:30 06/04/17 15:29 (Lopressor) 25 mg PELT GRADER PRN PO 06/01/17 15:30 06/04/17 15:29 (Betadine 5% Antisepsis Kit) 1 applic PELT GRADER PRN EACH NARE 06/01/17 15:30 06/04/17 15:29 (Chlorhexidine 2% Cloth) 3 pack PELT GRADER PRN TOPICAL 06/01/17 15:30 06/04/17 15:29 Reported Meds & Active Scripts Active Clindamycin (Clindamycin HCl) 150 Mg Cap 2 Tab PO Q6H Bactrim DS (Sulfamethoxazole-Trimethoprim) 800-160 Mg Tab 1 Tab PO BID Family History Mom: DM, stomach cancer Dad: HTN, heart disease, DM Social History Tobacco use: 1 pack per week Alcohol use: Denies Illicit drug use: Denies Physical Exam Vital Signs Vital Signs Date Time Temp Pulse Resp B/P (MAP) Pulse Ox O2 Delivery O2 Flow Rate FiO2 06/01/17 12:57 99.1 95 20 159/88 (111) 96 06/01/17 08:00 98.2 89 20 153/75 (101) 98 06/01/17 04:00 98.4 87 15 146/80 (102) 98 06/01/17 00:24 98.0 81 20 162/79 (106) 98 05/31/17 22:59 84 18 177/86 (116) 99 Room Air 05/31/17 21:21 98.8 121 20 179/93 (121) 99 Room Air Physical Exam HEENT: Normocephalic atraumatic pupils equal round reactive. NECK: Supple. No abnormal masses. Full range of motion. CHEST: Clear to auscultation with no rales or rhonchi's or wheezes. HEART: Regular rate and rhythm. No murmurs. ABDOMEN: Soft, nontender, no masses. Normal active bowel sounds. GENITOURINARY: Deferred. MUSCULOSKELETAL: Right elbow and arm show significant swelling. There is a rash extending from the dorsal mid forearm above the elbow. It has a splotchy this to it to swelling and induration involving the elbow and very limited range of motion the elbow. Mild warmth is noted. Some discomfort in the region of the shoulder is noted. Radial pulse 2+. Sensation is almost normal. No other abnormal swelling of other joints are noted Laboratory Laboratory Tests Test 05/31/17 22:00 06/01/17 07:00 White Blood Count 5.9 3.5 Red Blood Count 3.65 4.03 Hemoglobin 11.0 12.0 Hematocrit 30.5 34.1 Mean Corpuscular Volume 83.7 84.5 Mean Corpuscular Hemoglobin 30.0 29.8 Mean Corpuscular Hemoglobin Concent 35.9 35.2 Red Cell Distribution Width 14.1 14.4 Platelet Count 485 527 Mean Platelet Volume 5.6 5.8 Neutrophils (%) (Auto) 57.5 85.5 Lymphocytes (%) (Auto) 28.0 13.3 Monocytes (%) (Auto) 7.4 1.0 Eosinophils (%) (Auto) 6.2 0.0 Basophils (%) (Auto) 0.9 0.2 Neutrophils # (Auto) 3.4 3.0 Lymphocytes # (Auto) 1.6 0.5 Monocytes # (Auto) 0.4 0.0 Eosinophils # (Auto) 0.4 0.0 Basophils # (Auto) 0.0 0.0 CBC Comment DIFF FINAL DIFF FINAL Differential Comment Erythrocyte Sedimentation Rate 109 Blood Urea Nitrogen 6 6 Creatinine 0.64 0.74 Random Glucose 92 163 Total Protein 7.9 Albumin 3.2 Calcium Level 9.0 9.3 Alkaline Phosphatase 99 Aspartate Amino Transf (AST/SGOT) 11 Alanine Aminotransferase (ALT/SGPT) 9 Total Bilirubin 0.3 Sodium Level 126 130 Potassium Level 4.0 4.1 Chloride Level 90 95 Carbon Dioxide Level 28.0 25.7 Anion Gap 8 9 Estimat Glomerular Filtration Rate 132 112 Lactic Acid Level 0.7 C-Reactive Protein 11.00 Date/Time Source Procedure Growth Status 05/31/17 22:50 Blood Line Aerobic Blood Culture - Preliminary NO GROWTH IN 1 DAY Resulted 05/31/17 22:50 Blood Line Anaerobic Blood Culture - Preliminary NO GROWTH IN 1 DAY Resulted Result Diagram: 06/01/17 0700 06/01/17 0700 Imaging Review of x-rays and CT of the right elbow shows evidence of erosive changes involving the proximal ulna, proximal radius and distal humerus. Fluid collections around the elbow or seen. This has the appearance of chronic pyogenic arthritis of the elbow with erosive changes of osteomyelitis and evidence of an abscess around the elbow. Possibly this may represent an aggressive inflammatory condition although that would be unusual in light of the sedimentation rate elevated at 109 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 Possible inflammatory noninfectious arthropathy the elbow (unlikely). Probable osteomyelitis of the right elbow. PLAN: Irrigation and debridement of skin subcutaneous tissue muscle and bone of the right elbow. Deep cultures will be obtained. This is an infection, hopefully we'll be able to elucidate an organism to be able to direct proper medical management. At the same time we'll take a biopsy for histology. Consent the risks of surgery including infection bleeding loss of motion continued pain and need for further surgery neurologic or vascular injury. The patient's images with press on with surgery as outlined above. This a very difficult condition. He has a long-standing process of the right elbow. iF This is infected, he'll need long-term IV antibiotics and will likely have very limited function of the elbow because of the destructive process of the bone soft tissues and cartilage of the right elbow. sIaac Bull MD Jun 01, 2017 16:03
--- NOTE | 2017-06-01 17:27 | PD.OP ---
Operative Report Date of Surgery: Jun 01, 2017 Preoperative Diagnosis: Probable abscess right elbow. Probable osteomyelitis right elbow. Chronic infection right elbow Postoperative Diagnosis: Abscess right elbow and forearm. Osteomyelitis right elbow. Procedure: Irrigation and debridement of skin subcutaneous tissue muscle and bone of the right forearm and elbow. Multiple biopsies right elbow and forearm. Deep bone biopsy right radial Anesthesia: Gen. Surgeon: Isaac Bull Social Sciences Professor(s): Staff Operation and Findings: EBL: 100 cc INDICATION: The patient is a 52-year-old male with long-standing inflammation of the right elbow. Clinically this is most appropriate to be a long-standing abscess with osteomyelitis. Comp creating the features of the patient has a history of rheumatoid arthritis. This may be an inflammatory arthropathy related noninfectious source, but clinically this appears infected. He presents for the above procedure PROCEDURE: The patient was brought to the operating room and anesthetized in the supine position. The arm was draped over a holding the bolster. A tourniquet was placed. The arm was scrubbed with alcohol followed by Hibiclens followed by ChloraPrep and draped sterilely. A timeout was done and antibiotics were held because the patient had been on routine antibiotics. After exsanguination the tourniquet was inflated to 250 mmHg. A posterior incision was made extending along the radial side of the olecranon. There was a deep abscess on the volar forearm distal to the olecranon. This was drained. We then extended into the joint going over the edge of the olecranon in the region of the radial head. There was a phlegmonous process extending into the joint. Delamination of the articular cartilage was seen. Multiple cultures were sent. A biopsy of the radial head was sent for pathology. The elbow was debrided aggressively. The picture of long-standing infectious-type material. This debrided of all necrotic appearing material. We extended to the anterior aspect of the joint through the joint and debrided the anterior aspect of the joint. Cartilage was delaminated from the radial head which was removed. The wound was irrigated With Multiple Liters of Antibiotic Irrigation. A Drain Was Brought out through Separate Stab Incision, Draining Both the Superficial Abscess in the Deep Abscess in the Elbow. The Deep Fascia Was Closed with Running 0 PDS and Skin with Interrupted 3-0 Nylon. Dressing Was Applied Patient Was Taken to Recovery Room Satisfactory Condition Isaac Bull MD Jun 01, 2017 17:26
[2017-06-01] MEDS ORDERED: diphenhydrAMINE HCL 25 MG CAP PO PRN (17:30)
[2017-06-01] MEDS ORDERED: MAGNESIUM HYDROXIDE SUSP 30 ML CUP PO PRN (17:30)
[2017-06-01] MEDS ORDERED: ONDANSETRON HCL 4 MG/2 ML VIAL IVP PRN (17:30)
[2017-06-01] MEDS ORDERED: ACETAMINOPHEN/HYDROcodone 325 MG/10 MG TAB PO PRN (17:30)
--- NOTE | 2017-06-01 17:38 | HHI.PR ---
Subjective Remarks Patient seen and examined this afternoon for surgery around 2 PM. Patient reports pain is controlled. Denies any chest pain or shortness of breath. Denies any nausea or vomiting. Objective Vital Signs Date Time Temp Pulse Resp B/P (MAP) Pulse Ox O2 Delivery O2 Flow Rate FiO2 06/01/17 12:57 99.1 95 20 159/88 (111) 96 06/01/17 08:00 98.2 89 20 153/75 (101) 98 06/01/17 04:00 98.4 87 15 146/80 (102) 98 06/01/17 00:24 98.0 81 20 162/79 (106) 98 05/31/17 22:59 84 18 177/86 (116) 99 Room Air 05/31/17 21:21 98.8 121 20 179/93 (121) 99 Room Air I/O 05/31/17 05/31/17 05/31/17 06/01/17 06/01/17 06/01/17 07:00 15:00 23:00 07:00 15:00 23:00 Intake Total 1000 ml 690 ml 1000 ml Output Total 900 ml 25 ml Balance 1000 ml -210 ml 975 ml Intake Oral 240 ml IV Total 1000 ml 450 ml 1000 ml Output Urine Total 900 ml Estimated Blood Loss 25 ml Result Diagram: 06/01/17 0700 06/01/17 0700 Objective Remarks GENERAL: She is lying in bed. Appears comfortable. Alert and oriented 3. SKIN: Warm and dry. HEAD: Normocephalic. EYES: No scleral icterus. No injection or drainage. NECK: Supple, trachea midline. No JVD. CARDIOVASCULAR: Regular rate and rhythm without murmurs, gallops, or rubs. RESPIRATORY: Breath sounds equal bilaterally. No accessory muscle use. GASTROINTESTINAL: Abdomen soft, non-tender, nondistended. MUSCULOSKELETAL: No cyanosis, or edema. Right elbow with erythema and tenderness to palpation. Distal perfusion is intact. BACK: Nontender without obvious deformity. No CVA tenderness. A/P Assessment and Plan //Sepsis. // Right elbow osteomyelitis. //Right elbow septic arthritis. = Leukopenia and tachycardia. Right elbow septic arthritis -Sedimentation rate 109. -CT elbow with osteomyelitis of the right elbow. -Consult placed ID. Appreciate assistance. Patient went for debridement with orthopedics this afternoon. Continue broad-spectrum antibiotics. Follow-up wound cultures. Appreciate assistance. //Prophylaxis. As per surgical service. Discharge Planning Continue treatment for sepsis and right elbow osteomyelitis. Cultures pending = Infectious disease and orthopedics pending = OT consult ordered. Bjorn Duran MD Jun 01, 2017 17:37
[2017-06-01] MEDS ORDERED: *morphine SULFATE 10 MG/ML PERIprocedure ONLY ONE (17:57)
[2017-06-01] MEDS: LACTATED RINGER'S 1000 ML INJ 1,000 ML IV SCH (18:00)
[2017-06-01] MEDS ORDERED: DO NOT ADM ANY ANTICOAGULANT DRUGS PRN (18:15)
[2017-06-01 20:00] VITALS: BP 180/84; PULSE 103; RESP 24; TEMP 97.6; O2SAT 99
--- NOTE | 2017-06-01 21:01 | RADRPT ---
EXAM DATE/TIME: 06/01/2017 20:40 [facility] COMPARISON: No previous studies available for comparison. INDICATIONS : Right shoulder pain and swelling for 1 week. MEDICAL HISTORY : None. SURGICAL HISTORY : None. ENCOUNTER: Initial ACUITY: 1 week PAIN SCORE: 5/10 LOCATION: Right shoulder. FINDINGS: Multiple view examination of the right shoulder demonstrates no evidence of fracture or dislocation. The glenohumeral and acromioclavicular joints are maintained. There is normal range of motion betwe en internal and external rotation. CONCLUSION: 1. No acute bony abnormality. Tyler Goldberg MD on June 01, 2017 at 20:58 Board Certified Radiologist. This report was verified electronically.
[2017-06-01] MEDS: DOCUSATE SODIUM 50 MG/SENNA 8.6 MG TAB PO SCH (21:55)
[2017-06-02] VITALS: BP 160/98; PULSE 97; RESP 22; TEMP 98; O2SAT 98
[2017-06-02] MEDS ORDERED: VANCOMYCIN 1 GM/200 ML PREMIX IV ONE (01:00)
[2017-06-02] MEDS: ACETAMINOPHEN/HYDROcodone 325 MG/10 MG TAB PO PRN ×4 (01:14→21:07)
[2017-06-02] MEDS: PIPERACIL-TAZO 4.5 GM PREMIX 100 ML IV SCH ×4 (01:15→17:50)
[2017-06-02] MEDS: methylPREDNISolone SOD SUCC 40 MG/1 ML VIAL IV PUSH SCH ×4 (02:40→21:02)
[2017-06-02] MEDS: FAMOTIDINE 20 MG/2 ML VIAL IV PUSH SCH ×2 (02:40→15:06)
[2017-06-02 04:00] VITALS: BP 160/77; PULSE 83; RESP 22; TEMP 97.9; O2SAT 98
[2017-06-02] MEDS: LACTATED RINGER'S 1000 ML INJ 1,000 ML IV SCH ×2 (05:13→15:07)
--- NOTE | 2017-06-02 07:56 | PD.ORT.PN ---
Subjective Subjective Remarks Moderate pain in right elbow. History of significant swelling and drainage right elbow on and off for 4-5 months. Preoperative studies consistent with inflammatory condition of right elbow, likely pyogenic arthritis with osteomyelitis. Objective Vitals Vital Signs Date Time Temp Pulse Resp B/P (MAP) Pulse Ox O2 Delivery O2 Flow Rate FiO2 06/02/17 04:00 97.9 83 22 160/77 (104) 98 06/02/17 00:00 98.0 97 22 160/98 (118) 98 06/01/17 20:00 97.6 103 24 180/84 (116) 99 06/01/17 19:00 90 16 164/84 (110) 97 Room Air 06/01/17 18:30 94 16 164/89 (114) 96 Room Air 06/01/17 18:15 90 16 159/86 (110) 96 Room Air 06/01/17 18:00 96 16 165/86 (112) 97 Room Air 06/01/17 17:45 98.5 98 16 130/87 (101) 100 Room Air 06/01/17 12:57 99.1 95 20 159/88 (111) 96 06/01/17 08:00 98.2 89 20 153/75 (101) 98 I/O 06/01/17 06/01/17 06/01/17 06/02/17 06/02/17 06/02/17 07:00 15:00 23:00 07:00 15:00 23:00 Intake Total 690 ml 1100 ml 720 ml Output Total 900 ml 25 ml 1000 ml Balance -210 ml 1075 ml -280 ml Intake Oral 240 ml 720 ml IV Total 450 ml 1100 ml Output Urine Total 900 ml 1000 ml Estimated Blood Loss 25 ml Result Diagram: 06/01/17 0700 06/01/17 0700 Objective Remarks Dressing dry. Drain intact. 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 Possible inflammatory noninfectious arthropathy the elbow (unlikely). Probable osteomyelitis of the right elbow. Surgery: Incision and drainage with arthrotomy and extensive debridement right elbow and proximal right forearm: POD #1 PLAN: Multiple cultures taken including tissue culture from in the elbow as well as swab of drainage. Biopsy pending from synovial tissue at the elbow and bone of proximal radius. Likely represents a deep infection with osteomyelitis. IV antibiotics per infectious disease. Discontinue drain of the right elbow on Monday unless drainage is significant. Might need to leave and 1 additional day. It drains both the elbow and a subcutaneous abscess of the proximal forearm Alcohol dressing changes starting postop day #2 area Stable orthopedically Isaac Bull MD Jun 02, 2017 07:56
[2017-06-02 08:00] VITALS: BP_SYST 127; BP_SYST 177; BP_DIAS 62; BP_DIAS 80; PULSE 74; PULSE 75; RESP 20; TEMP 97.5; TEMP 98.5; O2SAT 97
[2017-06-02] MEDS: SODIUM CHLORIDE 0.9% FLUSH 10 ML FLUSH IV FLUSH SCH ×2 (09:00→21:06)
[2017-06-02] MEDS: MULTIVITAMINS/MINERALS THERAPEUTIC TAB PO SCH (09:21)
[2017-06-02] MEDS: DOCUSATE SODIUM 50 MG/SENNA 8.6 MG TAB PO SCH ×2 (09:21→21:00)
[2017-06-02] MEDS: VANCOMYCIN INJ 1,500 MG in SODIUM CHLORID 0.9% 500 ML INJ 500 ML IV SCH ×2 (09:21→21:03)
--- NOTE | 2017-06-02 09:44 | HHI.IDPN ---
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 His right elbow started having problem back in December 2016. He apparently had a little bit of injury, and developed redness and swelling. He presented to the emergency room at that time, and he was treated for cellulitis. Since that time he has had problem with range of motion in that elbow, and has had recurrent swelling and pain associated with it. He has not really had any diagnostic testing on that elbow. Patient also has had this skin rash that comes and goes as well and part of his still's disease. Recently probably in the last 1 week, he has developed swelling pain and decreased range of motion on his right elbow, as well as recurrence of his rash. No documented fevers. He also has been having problem with his right shoulder since he is not really doing moving much his right upper extremity. No specific respiratory complaints. No GI or any urinary complaints. Since presentation to the ED he has not had any fever. Imaging study in his right upper extremity showed findings of osteomyelitis, and there is also presence of an effusion in his right elbow. His WBC is 3.5. His sed rate is 109. Infectious disease consultation has been requested to assist with evaluation and treatment Notes reviewed D/W RN Patito stewart Went to surgery yesterday - operative findings noted Nothing yet on micro Pain in R shoulder better Xray R shoulder ok Pain in R elbow under control Antibiotics Current Medications Vancomycin Zosyn Medications (Trade) Dose Ordered Sig/Dayne Route Start Time Stop Time Status Last Admin (NS Flush) 2 ml UNSCH PRN IV FLUSH 05/31/17 23:45 06/01/17 06:00 (NS Flush) 2 ml BID IV FLUSH 06/01/17 09:00 06/01/17 21:57 (Narcan Inj) 0.4 mg UNSCH PRN IV PUSH 05/31/17 23:45 Pharmacy Profile Note 0 ml @ 0 mls/hr UNSCH OTHER 05/31/17 23:45 Piperacillin Sod/ Tazobactam Sod 100 ml @ 200 mls/hr Q6H IV 06/01/17 06:00 06/02/17 06:47 (Morphine Inj) 2 mg Q3H PRN IV PUSH 05/31/17 23:45 06/01/17 21:52 (SoluMEDROL INJ) 40 mg Q6H IV PUSH 06/01/17 03:00 06/02/17 09:21 (Toradol Inj) 30 mg Q6H PRN IV PUSH 06/01/17 00:45 (Pepcid Inj) 20 mg Q12H IV PUSH 06/01/17 04:00 06/02/17 02:40 Vancomycin HCl 1500 mg/Sodium Chloride 515 ml @ 250 mls/hr Q12H IV 06/01/17 10:00 06/02/17 09:21 Miscellaneous Information SPECIFIC LAB TO BE DRAWN:VANCOMYCIN TROUGH DATE TO... ONCE ONCE .XX 06/03/17 09:45 06/03/17 09:46 Lactated Ringer's 1,000 ml @ 30 mls/hr Q24H PRN IV 06/01/17 15:30 06/04/17 15:29 Sodium Chloride 500 ml @ 30 mls/hr [id number] PRN IV 06/01/17 15:30 06/04/17 15:29 (Lopressor) 25 mg HYDROELECTRIC OPERATOR PRN PO 06/01/17 15:30 06/04/17 15:29 (Betadine 5% Antisepsis Kit) 1 applic HYDROELECTRIC OPERATOR PRN EACH NARE 06/01/17 15:30 06/04/17 15:29 (Chlorhexidine 2% Cloth) 3 pack HYDROELECTRIC OPERATOR PRN TOPICAL 06/01/17 15:30 06/04/17 15:29 Lactated Ringer's 1,000 ml @ 85 mls/hr [id number] IV 06/01/17 17:27 06/01/17 18:00 (Nathalia-Colace) 1 tab BID PO 06/01/17 21:00 06/02/17 09:21 (Milk Of Magnesia Liq) 10 ml Q12H PRN PO 06/01/17 17:30 ([place] 10-325 Mg) 1 tab Q6H PRN PO 06/01/17 17:30 ([place] 10-325 Mg) 2 tab Q6H PRN PO 06/01/17 17:30 06/02/17 06:46 (Zofran Inj) 4 mg Q4H PRN IVP 06/01/17 17:30 (Theragran M Tab) 1 tab DAILY PO 06/02/17 09:00 06/02/17 09:21 (Benadryl) 25 mg Q6H PRN PO 06/01/17 17:30 06/02/17 03:12 (Ambien) 5 mg HS PRN PO 06/01/17 17:30 Miscellaneous Information ALL NURSING DEPARTME... UNSCH PRN .XX 06/01/17 18:15 06/02/17 18:14 Lines PIV Past Medical History Still's disease Asthma Treatment for cellulitis in the right elbow December 2016 Past Surgical History Left hand surgery Allergies: Coded Allergies: No Known Allergies (Verified Allergy, Unknown, 05/31/17) Objective . Vital Signs Date Time Temp Pulse Resp B/P (MAP) Pulse Ox O2 Delivery O2 Flow Rate FiO2 06/02/17 08:00 97.5 74 20 177/80 (112) 97 06/02/17 04:00 97.9 83 22 160/77 (104) 98 06/02/17 00:00 98.0 97 22 160/98 (118) 98 06/01/17 20:00 97.6 103 24 180/84 (116) 99 06/01/17 19:00 90 16 164/84 (110) 97 Room Air 06/01/17 18:30 94 16 164/89 (114) 96 Room Air 06/01/17 18:15 90 16 159/86 (110) 96 Room Air 06/01/17 18:00 96 16 165/86 (112) 97 Room Air 06/01/17 17:45 98.5 98 16 130/87 (101) 100 Room Air 06/01/17 12:57 99.1 95 20 159/88 (111) 96 06/02/17 06/02/17 06/03/17 14:59 22:59 06:59 Intake Total 120 ml Balance 120 ml Intake Oral 120 ml . Laboratory Tests Test 05/31/17 22:00 06/01/17 07:00 White Blood Count 5.9 TH/MM3 3.5 TH/MM3 Red Blood Count 3.65 MIL/MM3 4.03 MIL/MM3 Hemoglobin 11.0 GM/DL 12.0 GM/DL Hematocrit 30.5 % 34.1 % Mean Corpuscular Volume 83.7 FL 84.5 FL Mean Corpuscular Hemoglobin 30.0 PG 29.8 PG Mean Corpuscular Hemoglobin Concent 35.9 % 35.2 % Red Cell Distribution Width 14.1 % 14.4 % Platelet Count 485 TH/MM3 527 TH/MM3 Mean Platelet Volume 5.6 FL 5.8 FL Neutrophils (%) (Auto) 57.5 % 85.5 % Lymphocytes (%) (Auto) 28.0 % 13.3 % Monocytes (%) (Auto) 7.4 % 1.0 % Eosinophils (%) (Auto) 6.2 % 0.0 % Basophils (%) (Auto) 0.9 % 0.2 % Neutrophils # (Auto) 3.4 TH/MM3 3.0 TH/MM3 Lymphocytes # (Auto) 1.6 TH/MM3 0.5 TH/MM3 Monocytes # (Auto) 0.4 TH/MM3 0.0 TH/MM3 Eosinophils # (Auto) 0.4 TH/MM3 0.0 TH/MM3 Basophils # (Auto) 0.0 TH/MM3 0.0 TH/MM3 CBC Comment DIFF FINAL DIFF FINAL Differential Comment Erythrocyte Sedimentation Rate 109 mm/hr Laboratory Tests Test 05/31/17 22:00 06/01/17 07:00 Blood Urea Nitrogen 6 MG/DL 6 MG/DL Creatinine 0.64 MG/DL 0.74 MG/DL Random Glucose 92 MG/DL 163 MG/DL Total Protein 7.9 GM/DL Albumin 3.2 GM/DL Calcium Level 9.0 MG/DL 9.3 MG/DL Alkaline Phosphatase 99 U/L Aspartate Amino Transf (AST/SGOT) 11 U/L Alanine Aminotransferase (ALT/SGPT) 9 U/L Total Bilirubin 0.3 MG/DL Sodium Level 126 MEQ/L 130 MEQ/L Potassium Level 4.0 MEQ/L 4.1 MEQ/L Chloride Level 90 MEQ/L 95 MEQ/L Carbon Dioxide Level 28.0 MEQ/L 25.7 MEQ/L Anion Gap 8 MEQ/L 9 MEQ/L Estimat Glomerular Filtration Rate 132 ML/MIN 112 ML/MIN Lactic Acid Level 0.7 mmol/L C-Reactive Protein 11.00 MG/DL Microbiology Date/Time Source Procedure Growth Status 05/31/17 22:50 Blood Line Aerobic Blood Culture - Preliminary NO GROWTH IN 1 DAY Resulted 05/31/17 22:50 Blood Line Anaerobic Blood Culture - Preliminary NO GROWTH IN 1 DAY Resulted 05/31/17 22:50 Blood Line Aerobic Blood Culture - Preliminary NO GROWTH IN 1 DAY Resulted 05/31/17 22:50 Blood Line Anaerobic Blood Culture - Preliminary NO GROWTH IN 1 DAY Resulted 06/01/17 17:00 Fluid Other Fungal Smear Pending Received 06/01/17 17:00 Fluid Other Fungal Culture Pending Received 06/01/17 17:00 Fluid Other Acid Fast Stain Pending Received 06/01/17 17:00 Fluid Other Mycobacterial Culture Pending Received 06/01/17 17:00 Fluid Other Gram Stain Pending Received 06/01/17 17:00 Fluid Other Body Fluid Culture Pending Received 06/01/17 17:05 Wound Elbow Fungal Smear Pending Received 06/01/17 17:05 Wound Elbow Fungal Culture Pending Received 06/01/17 17:05 Wound Elbow Acid Fast Stain Pending Received 06/01/17 17:05 Wound Elbow Mycobacterial Culture Pending Received 06/01/17 17:05 Wound Elbow Gram Stain Pending Received 06/01/17 17:05 Wound Elbow Wound Culture Pending Received 06/01/17 17:01 Wound Elbow Fungal Smear Pending Received 06/01/17 17:01 Wound Elbow Fungal Culture Pending Received 06/01/17 17:01 Wound Elbow Acid Fast Stain Pending Received 06/01/17 17:01 Wound Elbow Mycobacterial Culture Pending Received 06/01/17 17:01 Wound Elbow Gram Stain Pending Received 06/01/17 17:01 Wound Elbow Wound Culture Pending Received Imaging Last Impressions Upper Extremity CT 06/01/17 0000 Signed Impressions: Service Date/Time: May 03:17 - CONCLUSION: Destructive changes centered at the elbow joint with associated effusion, and this is characteristic of septic arthritis. There is cellulitis, subcutaneous edema, and an abscess of the proximal forearm. Ole Stallworth MD Shoulder X-Ray 06/01/17 0000 Signed Impressions: Service Date/Time: May 20:40 - CONCLUSION: 1. No acute bony abnormality. Tyler Goldberg MD Elbow X-Ray [id number] Signed Impressions: Service Date/Time: Wednesday, May 31, 2017 22:06 - CONCLUSION: Significant worsening of soft tissue swelling since the prior examination with interval development of lytic destructive lesions of the proximal ulna and capitellum and the possibility of septic arthritis should be entertained in the appropriate clinical setting. Malcom Gonzalez MD Physical Exam GENERAL: awake and alert, not in respiratory distress. SKIN: Warm and moist. Erythematous maculopapular rash in upper trunk front and back and UE are improving especially in extremities. No ecchymoses and no evidence of embolic lesions. HEAD: Atraumatic. Normocephalic. No temporal wasting, or tenderness. EYES: Success conjunctiva. No petechia or hemorrhage. Pupils equal, round and reactive to light. Extraocular movements full and intact. No scleral icterus. No injection or drainage. EARS, NOSE AND THROAT: Nose without bleeding or purulent nasal discharge. No sinus tenderness. Mucous membranes pink and moist. No oral lesions noted. No exudate. No oral thrush. NECK: Trachea midline. Supple and not tender, no meningeal signs CARDIOVASCULAR: Regular rate and rhythm. No murmurs, rubs or gallops heard RESPIRATORY: Clear to auscultation. Breath sounds equal bilaterally. No rales , wheezing or rhonchi ABDOMEN: Soft, non-tender, nondistended. Bowel sounds present and normoactive. No guarding. No rebound. No organomegaly. EXTREMITIES: No clubbing, cyanosis. RUE: dry dressing in his RUE, has hemovac in place. Better ROM of his R shoulder joint. No calf tenderness. Well perfused and warm. NEUROLOGICAL: Grossly non focal. PSYCHIATRIC: Normal affect, calm and cooperative. LINE: No evidence of infection Assessment & Plan Remarks IMPRESSION Cellulitis RUE, with destructive changes in elbow and has effusion Abscess R elbow with osteomyelitis, S/P surgery Pain R shoulder, better, possibly due to immobility Still's disease, with active rash, arthritis and arthralgias, not been on Rx Mild neutropenia RECOMMENDATION Continue empiric Abx: Vanco and Zosyn Follow C/S and deescalate Abx based on C/S Repeat CBC Monitor progress I will determine course of treatment, depending on results of the workup and clinical course Explained to patient D/W Fernanda White MD Jun 02, 2017 09:44
--- NOTE | 2017-06-02 09:56 | HHI.PR ---
Subjective Remarks The patient was sitting up in bed. He said he was in a lot of pain but the pain was controlled. He said he has not been on medications for his still's disease for over a year. Discussed with family at bedside. Objective Vitals Vital Signs Date Time Temp Pulse Resp B/P (MAP) Pulse Ox O2 Delivery O2 Flow Rate FiO2 06/02/17 08:00 97.5 74 20 177/80 (112) 97 06/02/17 04:00 97.9 83 22 160/77 (104) 98 06/02/17 00:00 98.0 97 22 160/98 (118) 98 06/01/17 20:00 97.6 103 24 180/84 (116) 99 06/01/17 19:00 90 16 164/84 (110) 97 Room Air 06/01/17 18:30 94 16 164/89 (114) 96 Room Air 06/01/17 18:15 90 16 159/86 (110) 96 Room Air 06/01/17 18:00 96 16 165/86 (112) 97 Room Air 06/01/17 17:45 98.5 98 16 130/87 (101) 100 Room Air 06/01/17 12:57 99.1 95 20 159/88 (111) 96 I/O 06/01/17 06/01/17 06/01/17 06/02/17 06/02/17 06/02/17 07:00 15:00 23:00 07:00 15:00 23:00 Intake Total 690 ml 1100 ml 720 ml 120 ml Output Total 900 ml 25 ml 1000 ml Balance -210 ml 1075 ml -280 ml 120 ml Intake Oral 240 ml 720 ml 120 ml IV Total 450 ml 1100 ml Output Urine Total 900 ml 1000 ml Estimated Blood Loss 25 ml Result Diagram: 06/01/17 0700 06/01/17 0700 Imaging Last Impressions Upper Extremity CT 06/01/17 0000 Signed Impressions: Service Date/Time: May 03:17 - CONCLUSION: Destructive changes centered at the elbow joint with associated effusion, and this is characteristic of septic arthritis. There is cellulitis, subcutaneous edema, and an abscess of the proximal forearm. Ole Stallworth MD Shoulder X-Ray 06/01/17 0000 Signed Impressions: Service Date/Time: May 20:40 - CONCLUSION: 1. No acute bony abnormality. Tyler Goldberg MD Elbow X-Ray [id number] Signed Impressions: Service Date/Time: Wednesday, May 31, 2017 22:06 - CONCLUSION: Significant worsening of soft tissue swelling since the prior examination with interval development of lytic destructive lesions of the proximal ulna and capitellum and the possibility of septic arthritis should be entertained in the appropriate clinical setting. Malcom Gonzalez MD Objective Remarks GENERAL: No distress. SKIN: Warm and dry. HEAD: Normocephalic. EYES: No scleral icterus. No injection or drainage. NECK: Supple, trachea midline. No JVD. CARDIOVASCULAR: Regular rate and rhythm without murmurs, gallops, or rubs. RESPIRATORY: Breath sounds equal bilaterally. No accessory muscle use. GASTROINTESTINAL: Abdomen soft, non-tender, nondistended. MUSCULOSKELETAL: No cyanosis, or edema. Right elbow bandaged and with drain in place. Distal perfusion is intact. BACK: Nontender without obvious deformity. No CVA tenderness. NEURO: No gross deficits. PSYCH: Mood and affect appropriate. Medications and IVs Current Medications Medications (Trade) Dose Ordered Sig/Dayne Route Start Time Stop Time Status Last Admin (NS Flush) 2 ml UNSCH PRN IV FLUSH 05/31/17 23:45 06/01/17 06:00 (NS Flush) 2 ml BID IV FLUSH 06/01/17 09:00 06/01/17 21:57 (Narcan Inj) 0.4 mg UNSCH PRN IV PUSH 05/31/17 23:45 Pharmacy Profile Note 0 ml @ 0 mls/hr UNSCH OTHER 05/31/17 23:45 Piperacillin Sod/ Tazobactam Sod 100 ml @ 200 mls/hr Q6H IV 06/01/17 06:00 06/02/17 06:47 (Morphine Inj) 2 mg Q3H PRN IV PUSH 05/31/17 23:45 06/01/17 21:52 (SoluMEDROL INJ) 40 mg Q6H IV PUSH 06/01/17 03:00 06/02/17 09:21 (Toradol Inj) 30 mg Q6H PRN IV PUSH 06/01/17 00:45 (Pepcid Inj) 20 mg Q12H IV PUSH 06/01/17 04:00 06/02/17 02:40 Vancomycin HCl 1500 mg/Sodium Chloride 515 ml @ 250 mls/hr Q12H IV 06/01/17 10:00 06/02/17 09:21 Miscellaneous Information SPECIFIC LAB TO BE DRAWN:VANCOMYCIN TROUGH DATE TO... ONCE ONCE .XX 06/03/17 09:45 06/03/17 09:46 Lactated Ringer's 1,000 ml @ 30 mls/hr Q24H PRN IV 06/01/17 15:30 06/04/17 15:29 Sodium Chloride 500 ml @ 30 mls/hr [id number] PRN IV 06/01/17 15:30 06/04/17 15:29 (Lopressor) 25 mg PUMP ERECTOR HELPER PRN PO 06/01/17 15:30 06/04/17 15:29 (Betadine 5% Antisepsis Kit) 1 applic PUMP ERECTOR HELPER PRN EACH NARE 06/01/17 15:30 06/04/17 15:29 (Chlorhexidine 2% Cloth) 3 pack PUMP ERECTOR HELPER PRN TOPICAL 06/01/17 15:30 06/04/17 15:29 Lactated Ringer's 1,000 ml @ 85 mls/hr [id number] IV 06/01/17 17:27 06/01/17 18:00 (Nathalia-Colace) 1 tab BID PO 06/01/17 21:00 06/02/17 09:21 (Milk Of Magnbrandyn Liq) 10 ml Q12H PRN PO 06/01/17 17:30 ([place] 10-325 Mg) 1 tab Q6H PRN PO 06/01/17 17:30 ([place] 10-325 Mg) 2 tab Q6H PRN PO 06/01/17 17:30 06/02/17 06:46 (Zofran Inj) 4 mg Q4H PRN IVP 06/01/17 17:30 (Theragran M Tab) 1 tab DAILY PO 06/02/17 09:00 06/02/17 09:21 (Benadryl) 25 mg Q6H PRN PO 06/01/17 17:30 06/02/17 03:12 (Ambien) 5 mg HS PRN PO 06/01/17 17:30 Miscellaneous Information ALL NURSING DEPARTME... 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 Sedimentation rate 109. CT elbow with osteomyelitis of the right elbow, abscess of proximal forearm. Consults placed to orthopedic surgery and ID. Appreciate assistance. Patient went for debridement with orthopedics 06/01. - Continue broad-spectrum antibiotics (vancomycin and Zosyn). - Follow-up cultures. - OT. - pain control with a bowel regimen. - IV steroids. Hyponatremia Appears chronic. - follow BMP. Stills Disease Chronic condition. Has not been on meds in over a year. - continue steroids. - outpt follow-up. Prophylaxis: As per surgical service. Neeraj Rodriguez DO Jun 02, 2017 09:56
[2017-06-02 12:00] VITALS: BP 165/78; PULSE 74; RESP 20; TEMP 97.1; O2SAT 99
[2017-06-02 16:00] VITALS: BP 176/80; PULSE 73; RESP 20; TEMP 97.8; O2SAT 99
[2017-06-02 20:00] VITALS: BP 170/79; PULSE 86; RESP 19; TEMP 98.4; O2SAT 96
[2017-06-02] MEDS: ENALAPRILAT 1.25 MG/ML VIAL IV PUSH PRN (21:02)
[2017-06-02] MEDS: ZOLPIDEM TARTRATE 5 MG TAB PO PRN (21:06)
[2017-06-03] VITALS: BP 172/75; PULSE 82; RESP 19; TEMP 95.9; O2SAT 97
--- NOTE | 2017-06-03 00:58 | EKG ---
Date Performed: 06/01/2017 Time Performed: 15:07:36 PTAGE: 52 years EKG: Sinus rhythm POSSIBLE LEFT ATRIAL ENLARGEMENT INCOMPLETE RIGHT BUNDLE BRANCH BLOCK ABNORMAL ECG NO PREVIOUS TRACING DOCTOR: Rufino Herrmann Interpretating Date/Time 06/03/2017 00:57:15
[2017-06-03] MEDS: PIPERACIL-TAZO 4.5 GM PREMIX 100 ML IV SCH ×4 (01:04→18:03)
[2017-06-03] MEDS: ACETAMINOPHEN/HYDROcodone 325 MG/10 MG TAB PO PRN ×4 (03:06→22:54)
[2017-06-03] MEDS: methylPREDNISolone SOD SUCC 40 MG/1 ML VIAL IV PUSH SCH ×4 (03:06→20:59)
[2017-06-03] MEDS: FAMOTIDINE 20 MG/2 ML VIAL IV PUSH SCH ×2 (03:07→15:18)
[2017-06-03] MEDS: LACTATED RINGER'S 1000 ML INJ 1,000 ML IV SCH (03:14)
[2017-06-03 07:51] LABS: AUTOMATED NEUTROPHIL # 11.1 TH/MM3 (1.8-7.7); BASOPHIL % 0.3 % (0.0-2.0); HEMATOCRIT 33.4 % (39.0-51.0); HEMOGLOBIN 11.5 GM/DL (13.0-17.0); LYMPH % 7.4 % (9.0-44.0); LYMPHOCYTE # 0.9 TH/MM3 (1.0-4.8); MEAN CELL VOLUME 86.2 FL (80.0-100.0); MEAN CORPUSCULAR HEMOGLOBIN 29.7 PG (27.0-34.0); MEAN CORPUSCULAR HGB CONC 34.5 % (32.0-36.0); MONO % 3.2 % (0.0-8.0); MONOCYTE # 0.4 TH/MM3 (0-0.9); NEUT % 89.1 % (16.0-70.0); PLATELET COUNT 561 TH/MM3 (150-450); RED BLOOD COUNT 3.87 MIL/MM3 (4.50-5.90); RED CELL DISTRIBUTION WIDTH 14.7 % (11.6-17.2); WHITE BLOOD COUNT 12.5 TH/MM3 (4.0-11.0)
[2017-06-03 08:00] VITALS: BP 175/81; PULSE 73; RESP 19; TEMP 96.9; O2SAT 99
[2017-06-03 08:15] LABS: CREATININE 0.85 MG/DL (0.60-1.30)
[2017-06-03] MEDS: DOCUSATE SODIUM 50 MG/SENNA 8.6 MG TAB PO SCH ×2 (09:10→20:59)
[2017-06-03] MEDS: MULTIVITAMINS/MINERALS THERAPEUTIC TAB PO SCH (09:10)
[2017-06-03] MEDS: SODIUM CHLORIDE 0.9% FLUSH 10 ML FLUSH IV FLUSH SCH ×2 (09:11→20:58)
[2017-06-03] MEDS: ENALAPRILAT 1.25 MG/ML VIAL IV PUSH PRN (09:12)
[2017-06-03] MEDS ORDERED: PHARMACY ORDERED LAB ONE (09:45)
--- NOTE | 2017-06-03 09:45 | PD.ORT.PN ---
Subjective Post Op Day #: 2 Subjective Remarks pain tolerable Objective Vitals Vital Signs Date Time Temp Pulse Resp B/P (MAP) Pulse Ox O2 Delivery O2 Flow Rate FiO2 06/03/17 08:00 96.9 73 19 175/81 (112) 99 06/03/17 00:00 95.9 82 19 172/75 (107) 97 06/02/17 20:00 98.4 86 19 170/79 (109) 96 06/02/17 16:00 97.8 73 20 176/80 (112) 99 06/02/17 12:00 97.1 74 20 165/78 (107) 99 I/O 06/02/17 06/02/17 06/02/17 06/03/17 06/03/17 06/03/17 07:00 15:00 23:00 07:00 15:00 23:00 Intake Total 720 ml 120 ml 1200 ml 600 ml Output Total 1000 ml 1025 ml Balance -280 ml 120 ml 175 ml 600 ml Intake Oral 720 ml 120 ml 1200 ml 600 ml Output Urine Total 1000 ml 1000 ml Drainage Total 25 ml # Voids 2 # Bowel Movements 0 Result Diagram: 06/03/17 0706 06/03/17 0706 Objective Remarks Dressing dry. Drain intact. NVI cap refill Assessment & Plan Ortho Post Op Day #: 2 Problem List: Assessment and Plan Probable pyogenic arthritis right elbow. Stills disease. Possible inflammatory noninfectious arthropathy the elbow (unlikely). Probable osteomyelitis of the right elbow. Surgery: Incision and drainage with arthrotomy and extensive debridement right elbow and proximal right forearm: POD #2 PLAN: Multiple cultures taken including tissue culture from in the elbow as well as swab of drainage. Biopsy pending from synovial tissue at the elbow and bone of proximal radius. Likely represents a deep infection with osteomyelitis. IV antibiotics per infectious disease. ok to Discontinue drain of the right elbow today. It drains both the elbow and a subcutaneous abscess of the proximal forearm Alcohol dressing changes starting today Stable orthopedically Bjorn Knight Jun 03, 2017 09:45
[2017-06-03] MEDS: VANCOMYCIN INJ 1,500 MG in SODIUM CHLORID 0.9% 500 ML INJ 500 ML IV SCH ×2 (10:54→20:59)
[2017-06-03 12:00] VITALS: BP 172/79; PULSE 64; RESP 20; TEMP 97.6; O2SAT 99
--- NOTE | 2017-06-03 12:27 | HHI.PR ---
Subjective Remarks The patient said that the drain came out earlier this morning. He said he had severe pain in that location. He has been having bowel movements. He was working with therapy. Discussed with nursing. Objective Vitals Vital Signs Date Time Temp Pulse Resp B/P (MAP) Pulse Ox O2 Delivery O2 Flow Rate FiO2 06/03/17 10:05 18 06/03/17 08:00 96.9 73 19 175/81 (112) 99 06/03/17 00:00 95.9 82 19 172/75 (107) 97 06/02/17 20:00 98.4 86 19 170/79 (109) 96 06/02/17 16:00 97.8 73 20 176/80 (112) 99 I/O 06/02/17 06/02/17 06/02/17 06/03/17 06/03/17 06/03/17 06:59 14:59 22:59 06:59 14:59 22:59 Intake Total 720 ml 120 ml 1200 ml 600 ml Output Total 1000 ml 1025 ml Balance -280 ml 120 ml 175 ml 600 ml Intake Oral 720 ml 120 ml 1200 ml 600 ml Output Urine Total 1000 ml 1000 ml Drainage Total 25 ml # Voids 2 # Bowel Movements 0 Result Diagram: 06/03/17 0706 06/03/17 0706 Imaging Last Impressions Upper Extremity CT 06/01/17 0000 Signed Impressions: Service Date/Time: May 03:17 - CONCLUSION: Destructive changes centered at the elbow joint with associated effusion, and this is characteristic of septic arthritis. There is cellulitis, subcutaneous edema, and an abscess of the proximal forearm. Ole Stallworth MD Shoulder X-Ray 06/01/17 0000 Signed Impressions: Service Date/Time: May 20:40 - CONCLUSION: 1. No acute bony abnormality. Tyler Goldberg MD Elbow X-Ray [id number]/31/172140 Signed Impressions: Service Date/Time: Wednesday, May 31, 2017 22:06 - CONCLUSION: Significant worsening of soft tissue swelling since the prior examination with interval development of lytic destructive lesions of the proximal ulna and capitellum and the possibility of septic arthritis should be entertained in the appropriate clinical setting. Malcom Gonzalez MD Objective Remarks GENERAL: No distress. SKIN: Warm and dry. HEAD: Normocephalic. EYES: No scleral icterus. No injection or drainage. NECK: Supple, trachea midline. No JVD. CARDIOVASCULAR: Regular rate and rhythm without murmurs, gallops, or rubs. RESPIRATORY: Breath sounds equal bilaterally. No accessory muscle use. GASTROINTESTINAL: Abdomen soft, non-tender, nondistended. MUSCULOSKELETAL: No cyanosis, or edema. Right elbow bandaged. Distal perfusion is intact. BACK: Nontender without obvious deformity. No CVA tenderness. NEURO: No gross deficits. PSYCH: Mood and affect appropriate. Medications and IVs Current Medications Medications (Trade) Dose Ordered Sig/Dayne Route Start Time Stop Time Status Last Admin (NS Flush) 2 ml UNSCH PRN IV FLUSH 05/31/17 23:45 06/01/17 06:00 (NS Flush) 2 ml BID IV FLUSH 06/01/17 09:00 06/03/17 09:11 (Narcan Inj) 0.4 mg UNSCH PRN IV PUSH 05/31/17 23:45 Pharmacy Profile Note 0 ml @ 0 mls/hr UNSCH OTHER 05/31/17 23:45 Piperacillin Sod/ Tazobactam Sod 100 ml @ 200 mls/hr Q6H IV 06/01/17 06:00 06/03/17 12:14 (Morphine Inj) 2 mg Q3H PRN IV PUSH 05/31/17 23:45 06/01/17 21:52 (SoluMEDROL INJ) 40 mg Q6H IV PUSH 06/01/17 03:00 06/03/17 09:10 (Toradol Inj) 30 mg Q6H PRN IV PUSH 06/01/17 00:45 (Pepcid Inj) 20 mg Q12H IV PUSH 06/01/17 04:00 06/03/17 03:07 Vancomycin HCl 1500 mg/Sodium Chloride 515 ml @ 250 mls/hr Q12H IV 06/01/17 10:00 06/03/17 10:54 Lactated Ringer's 1,000 ml @ 30 mls/hr Q24H PRN IV 06/01/17 15:30 06/04/17 15:29 Sodium Chloride 500 ml @ 30 mls/hr [id number] PRN IV 06/01/17 15:30 06/04/17 15:29 (Lopressor) 25 mg HOSPICE [employer]ER[employer] PRN PO 06/01/17 15:30 06/04/17 15:29 (Betadine 5% Antisepsis Kit) 1 applic HOSPICE [employer]ER[employer]Y PRN EACH NARE 06/01/17 15:30 06/04/17 15:29 (Chlorhexidine 2% Cloth) 3 pack HOSPICE MUSIC THERAPY PRN TOPICAL 06/01/17 15:30 06/04/17 15:29 Lactated Ringer's 1,000 ml @ 85 mls/hr [id number] IV 06/01/17 17:27 06/02/17 15:07 (Nathalia-Colace) 1 tab BID PO 06/01/17 21:00 06/03/17 09:10 (Milk Of Magnesia Liq) 10 ml Q12H PRN PO 06/01/17 17:30 (Bow 10-325 Mg) 1 tab Q6H PRN PO 06/01/17 17:30 (Bow 10-325 Mg) 2 tab Q6H PRN PO 06/01/17 17:30 06/03/17 09:02 (Zofran Inj) 4 mg Q4H PRN IVP 06/01/17 17:30 (Theragran M Tab) 1 tab DAILY PO 06/02/17 09:00 06/03/17 09:10 (Benadryl) 25 mg Q6H PRN PO 06/01/17 17:30 06/02/17 03:12 (Ambien) 5 mg HS PRN PO 06/01/17 17:30 06/02/17 21:06 (Vasotec Inj) 1.25 mg Q6H PRN IV PUSH 06/02/17 10:30 06/03/17 09:12 A/P Problem List: (1) Septic arthritis ICD Code: M00.9 - Pyogenic arthritis, unspecified (2) 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 Sedimentation rate 109. CT elbow with osteomyelitis of the right elbow, abscess of proximal forearm. Consults placed to orthopedic surgery and ID. Appreciate assistance. Patient went for debridement with orthopedics 06/01. - Continue broad-spectrum antibiotics (vancomycin and Zosyn). - Follow-up cultures. Coag positive staph growing. - follow pathology. - OT. - pain control with a bowel regimen. - IV steroids. Hyponatremia Appears chronic. - follow BMP. Stills Disease Chronic condition. Has not been on meds in over a year. - continue steroids. - outpt follow-up. HTN Exacerbated by pain. - pain control. - lisinopril 10 mg daily. - Vasotec as needed. Prophylaxis: As per surgical service. Neeraj Rodriguez DO Jun 03, 2017 12:27
[2017-06-03] MEDS: LISINOPRIL 10 MG TAB PO SCH (13:20)
[2017-06-03 16:00] VITALS: BP 154/76; PULSE 77; RESP 17; TEMP 97.4; O2SAT 99
[2017-06-03] MEDS: MORPHINE SULFATE 2 MG/ML INJ IV PUSH PRN (17:17)
[2017-06-03 20:00] VITALS: BP 174/84; PULSE 63; RESP 19; TEMP 97.2; O2SAT 98
[2017-06-03] MEDS: ZOLPIDEM TARTRATE 5 MG TAB PO PRN (22:54)
[2017-06-04] VITALS (7 sets, daily range): BP systolic 160–194; BP diastolic 80–93; PULSE 60–85; RESP 17–22; TEMP 95.4–97.5; O2SAT 98–99
[2017-06-04] MEDS: PIPERACIL-TAZO 4.5 GM PREMIX 100 ML IV SCH ×4 (00:23→17:38)
[2017-06-04] MEDS: methylPREDNISolone SOD SUCC 40 MG/1 ML VIAL IV PUSH SCH ×2 (01:29→08:03)
[2017-06-04] MEDS: LACTATED RINGER'S 1000 ML INJ 1,000 ML IV SCH ×2 (04:17→16:03)
[2017-06-04] MEDS: FAMOTIDINE 20 MG/2 ML VIAL IV PUSH SCH ×2 (04:21→16:31)
[2017-06-04] MEDS: ENALAPRILAT 1.25 MG/ML VIAL IV PUSH PRN (04:22)
[2017-06-04] MEDS: ACETAMINOPHEN/HYDROcodone 325 MG/10 MG TAB PO PRN ×3 (04:29→18:42)
[2017-06-04] MEDS: LISINOPRIL 10 MG TAB PO SCH (08:02)
[2017-06-04] MEDS: SODIUM CHLORIDE 0.9% FLUSH 10 ML FLUSH IV FLUSH SCH ×2 (08:02→21:00)
[2017-06-04] MEDS: DOCUSATE SODIUM 50 MG/SENNA 8.6 MG TAB PO SCH ×2 (08:03→21:09)
[2017-06-04] MEDS: MULTIVITAMINS/MINERALS THERAPEUTIC TAB PO SCH (08:03)
--- NOTE | 2017-06-04 08:30 | PD.ORT.PN ---
Subjective Post Op Day #: 3 Subjective Remarks pain tolerable, states drain fell out yesterday. Objective Vitals Vital Signs Date Time Temp Pulse Resp B/P (MAP) Pulse Ox O2 Delivery O2 Flow Rate FiO2 06/04/17 04:00 97.4 60 19 173/80 (111) 98 06/04/17 01:31 160/80 (106) 06/04/17 00:00 96.5 63 19 194/81 (118) 99 06/03/17 20:00 97.2 63 19 174/84 (114) 98 06/03/17 17:22 18 06/03/17 16:20 18 06/03/17 16:00 97.4 77 17 154/76 (102) 99 06/03/17 12:00 97.6 64 20 172/79 (110) 99 I/O 06/03/17 06/03/17 06/03/17 06/04/17 06/04/17 06/04/17 07:00 15:00 23:00 07:00 15:00 23:00 Intake Total 600 ml 1728 ml 900 ml Balance 600 ml 1728 ml 900 ml Intake Oral 600 ml 965 ml 800 ml IV Total 763 ml 100 ml # Voids 2 7 3 # Bowel Movements 1 Result Diagram: 06/03/17 0706 06/03/17 0706 Objective Remarks Dressing dry. Drain intact. NVI cap refill Assessment & Plan Ortho Post Op Day #: 3 Problem List: Assessment and Plan Probable pyogenic arthritis right elbow. Stills disease. Possible inflammatory noninfectious arthropathy the elbow (unlikely). Probable osteomyelitis of the right elbow. Surgery: Incision and drainage with arthrotomy and extensive debridement right elbow and proximal right forearm: POD #3 PLAN: Multiple cultures taken including tissue culture from in the elbow as well as swab of drainage. Biopsy pending from synovial tissue at the elbow and bone of proximal radius. Likely represents a deep infection with osteomyelitis. Staph coag positive IV antibiotics per infectious disease. drain d/c yesterday. Alcohol dressing changes daily Stable orthopedically Bjorn Knight Jun 04, 2017 08:30
[2017-06-04] MEDS: VANCOMYCIN INJ 1,500 MG in SODIUM CHLORID 0.9% 500 ML INJ 500 ML IV SCH ×2 (10:57→21:09)
--- NOTE | 2017-06-04 11:29 | HHI.PR ---
Subjective Remarks The patient was resting comfortably in bed. He stated that he still has not had a bowel movement. He said his pain was still not very well controlled but he didn't want to increase his pain medications because he was constipated. No other acute concerns. Discussed with nursing. Objective Vitals Vital Signs Date Time Temp Pulse Resp B/P (MAP) Pulse Ox O2 Delivery O2 Flow Rate FiO2 06/04/17 08:00 97.0 61 17 188/93 (124) 99 06/04/17 04:00 97.4 60 19 173/80 (111) 98 06/04/17 01:31 160/80 (106) 06/04/17 00:00 96.5 63 19 194/81 (118) 99 06/03/17 20:00 97.2 63 19 174/84 (114) 98 06/03/17 17:22 18 06/03/17 16:20 18 06/03/17 16:00 97.4 77 17 154/76 (102) 99 06/03/17 12:00 97.6 64 20 172/79 (110) 99 I/O 06/03/17 06/03/17 06/03/17 06/04/17 06/04/17 06/04/17 07:00 15:00 23:00 07:00 15:00 23:00 Intake Total 600 ml 1728 ml 900 ml Balance 600 ml 1728 ml 900 ml Intake Oral 600 ml 965 ml 800 ml IV Total 763 ml 100 ml # Voids 2 7 3 # Bowel Movements 1 Result Diagram: 06/03/17 0706 06/03/17 0706 Imaging Last Impressions Upper Extremity CT 06/01/17 0000 Signed Impressions: Service Date/Time: May 03:17 - CONCLUSION: Destructive changes centered at the elbow joint with associated effusion, and this is characteristic of septic arthritis. There is cellulitis, subcutaneous edema, and an abscess of the proximal forearm. Ole Stallworth MD Shoulder X-Ray 06/01/17 0000 Signed Impressions: Service Date/Time: May 20:40 - CONCLUSION: 1. No acute bony abnormality. Tyler Goldberg MD Elbow X-Ray 05/31/171 Signed Impressions: Service Date/Time: Wednesday, May 31, 2017 22:06 - CONCLUSION: Significant worsening of soft tissue swelling since the prior examination with interval development of lytic destructive lesions of the proximal ulna and capitellum and the possibility of septic arthritis should be entertained in the appropriate clinical setting. Malcom Gonzalez MD Objective Remarks GENERAL: No distress. SKIN: Warm and dry. HEAD: Normocephalic. EYES: No scleral icterus. No injection or drainage. NECK: Supple, trachea midline. No JVD. CARDIOVASCULAR: Regular rate and rhythm without murmurs, gallops, or rubs. RESPIRATORY: Breath sounds equal bilaterally. No accessory muscle use. GASTROINTESTINAL: Abdomen soft, non-tender, nondistended. +BS. MUSCULOSKELETAL: No cyanosis, or edema. Right elbow bandaged. Distal perfusion is intact. Wiggling fingers on right. BACK: Nontender without obvious deformity. No CVA tenderness. NEURO: No gross deficits. PSYCH: Mood and affect appropriate. Medications and IVs Current Medications Medications (Trade) Dose Ordered Sig/Dayne Route Start Time Stop Time Status Last Admin (NS Flush) 2 ml UNSCH PRN IV FLUSH 05/31/17 23:45 06/01/17 06:00 (NS Flush) 2 ml BID IV FLUSH 06/01/17 09:00 06/04/17 08:02 (Narcan Inj) 0.4 mg UNSCH PRN IV PUSH 05/31/17 23:45 Pharmacy Profile Note 0 ml @ 0 mls/hr UNSCH OTHER 05/31/17 23:45 Piperacillin Sod/ Tazobactam Sod 100 ml @ 200 mls/hr Q6H IV 06/01/17 06:00 06/04/17 04:21 (Morphine Inj) 2 mg Q3H PRN IV PUSH 05/31/17 23:45 06/03/17 17:17 (SoluMEDROL INJ) 40 mg Q6H IV PUSH 06/01/17 03:00 06/04/17 08:03 (Toradol Inj) 30 mg Q6H PRN IV PUSH 06/01/17 00:45 (Pepcid Inj) 20 mg Q12H IV PUSH 06/01/17 04:00 06/04/17 04:21 Vancomycin HCl 1500 mg/Sodium Chloride 515 ml @ 250 mls/hr Q12H IV 06/01/17 10:00 06/04/17 10:57 Lactated Ringer's 1,000 ml @ 30 mls/hr Q24H PRN IV 06/01/17 15:30 06/04/17 15:29 Sodium Chloride 500 ml @ 30 mls/hr [id number] PRN IV 06/01/17 15:30 06/04/17 15:29 (Lopressor) 25 mg [employer]FRASTRUCTURE ANALYST PRN PO 06/01/17 15:30 06/04/17 15:29 (Betadine 5% Antisepsis Kit) 1 applic [employer]FRASTRUCTURE ANALYST PRN EACH NARE 06/01/17 15:30 06/04/17 15:29 (Chlorhexidine 2% Cloth) 3 pack [employer]STRUCT[employer] ANALYST PRN TOPICAL 06/01/17 15:30 06/04/17 15:29 Lactated Ringer's 1,000 ml @ 85 mls/hr [id number] IV 06/01/17 17:27 06/04/17 04:17 (Nathalia-Colace) 1 tab BID PO 06/01/17 21:00 06/04/17 08:03 (Milk Of Magnesia Liq) 10 ml Q12H PRN PO 06/01/17 17:30 (Hazen 10-325 Mg) 1 tab Q6H PRN PO 06/01/17 17:30 (Hazen 10-325 Mg) 2 tab Q6H PRN PO 06/01/17 17:30 06/04/17 04:29 (Zofran Inj) 4 mg Q4H PRN IVP 06/01/17 17:30 (Theragran M Tab) 1 tab DAILY PO 06/02/17 09:00 06/04/17 08:03 (Benadryl) 25 mg Q6H PRN PO 06/01/17 17:30 06/02/17 03:12 (Ambien) 5 mg HS PRN PO 06/01/17 17:30 06/03/17 22:54 (Vasotec Inj) 1.25 mg Q6H PRN IV PUSH 06/02/17 10:30 06/04/17 04:22 Miscellaneous Information SPECIFIC LAB TO BE DRAWN:[facility]... 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 Sedimentation rate 109. CT elbow with osteomyelitis of the right elbow, abscess of proximal forearm. Consults placed to orthopedic surgery and ID. Appreciate assistance. Patient went for debridement with orthopedics 06/01. - Continue broad-spectrum antibiotics (vancomycin and Zosyn). - Follow-up cultures. Coag positive staph growing. - follow pathology. - OT. - pain control with a bowel regimen. Add Miralax for constipation. Hyponatremia Appears chronic. - follow BMP. Stills Disease Chronic condition. Has not been on meds in over a year. - continue steroids. Switch to PO prednisone then taper. - outpt follow-up. HTN Exacerbated by pain. - pain control. - dc lisinopril s/t dry cough. - start amlodipine 5 mg daily. - clonidine as needed. Prophylaxis: As per surgical service. Neeraj Rodriguez DO Jun 04, 2017 11:29
[2017-06-04] MEDS ORDERED: cloNIDine HCL 0.1 MG TAB PO PRN (11:30)
[2017-06-04] MEDS ORDERED: LISINOPRIL 10 MG TAB PO ONE (11:30)
[2017-06-04] MEDS: amLODIPine BESYLATE 5 MG TAB PO SCH (12:25)
[2017-06-04] MEDS: POLYETHYLENE GLYCOL 17 GM PKG PO SCH (12:25)
[2017-06-04] MEDS: MORPHINE SULFATE 2 MG/ML INJ IV PUSH PRN ×2 (13:35→21:22)
[2017-06-04] MEDS: predniSONE 20 MG TAB PO SCH (21:09)
[2017-06-05] VITALS: BP 160/97; PULSE 84; RESP 22; TEMP 95.9; O2SAT 98
[2017-06-05] MEDS: PIPERACIL-TAZO 4.5 GM PREMIX 100 ML IV SCH ×2 (00:24→04:24)
[2017-06-05 04:00] VITALS: BP 166/95; PULSE 71; RESP 22; TEMP 96.2; O2SAT 98
[2017-06-05] MEDS: LACTATED RINGER'S 1000 ML INJ 1,000 ML IV SCH ×2 (04:23→15:09)
[2017-06-05] MEDS: FAMOTIDINE 20 MG/2 ML VIAL IV PUSH SCH ×2 (04:25→15:52)
[2017-06-05 08:00] VITALS: BP 185/94; PULSE 66; RESP 20; TEMP 96.5; O2SAT 98
[2017-06-05] MEDS: SODIUM CHLORIDE 0.9% FLUSH 10 ML FLUSH IV FLUSH SCH ×2 (08:48→21:00)
[2017-06-05] MEDS: amLODIPine BESYLATE 5 MG TAB PO SCH (08:49)
[2017-06-05] MEDS: predniSONE 20 MG TAB PO SCH ×2 (08:49→22:22)
[2017-06-05] MEDS: DOCUSATE SODIUM 50 MG/SENNA 8.6 MG TAB PO SCH ×2 (08:49→22:22)
[2017-06-05] MEDS: MULTIVITAMINS/MINERALS THERAPEUTIC TAB PO SCH (08:49)
[2017-06-05] MEDS: POLYETHYLENE GLYCOL 17 GM PKG PO SCH (08:50)
[2017-06-05] MEDS: ACETAMINOPHEN/HYDROcodone 325 MG/10 MG TAB PO PRN ×3 (08:53→22:23)
[2017-06-05] MEDS ORDERED: LISINOPRIL 10 MG TAB PO SCH (09:00)
[2017-06-05] MEDS ORDERED: PHARMACY ORDERED LAB ONE (09:45)
[2017-06-05 09:57] LABS: HEMATOCRIT 35.4 % (39.0-51.0); HEMOGLOBIN 12.3 GM/DL (13.0-17.0); MEAN CELL VOLUME 85.9 FL (80.0-100.0); MEAN CORPUSCULAR HEMOGLOBIN 29.8 PG (27.0-34.0); MEAN CORPUSCULAR HGB CONC 34.7 % (32.0-36.0); MEAN PLATELET VOLUME 6.5 FL (7.0-11.0); PLATELET COUNT 556 TH/MM3 (150-450); RED BLOOD COUNT 4.12 MIL/MM3 (4.50-5.90); RED CELL DISTRIBUTION WIDTH 14.6 % (11.6-17.2); WHITE BLOOD COUNT 10.1 TH/MM3 (4.0-11.0)
[2017-06-05 10:23] LABS: BICARBONATE 27.6 MEQ/L (21.0-32.0); CALCIUM 8.8 MG/DL (8.5-10.1); CREATININE 0.81 MG/DL (0.60-1.30); MAGNESIUM 2.2 MG/DL (1.5-2.5)
--- NOTE | 2017-06-05 10:39 | HHI.IDPN ---
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 His right elbow started having problem back in December 2016. He apparently had a little bit of injury, and developed redness and swelling. He presented to the emergency room at that time, and he was treated for cellulitis. Since that time he has had problem with range of motion in that elbow, and has had recurrent swelling and pain associated with it. He has not really had any diagnostic testing on that elbow. Patient also has had this skin rash that comes and goes as well and part of his still's disease. Recently probably in the last 1 week, he has developed swelling pain and decreased range of motion on his right elbow, as well as recurrence of his rash. No documented fevers. He also has been having problem with his right shoulder since he is not really doing moving much his right upper extremity. No specific respiratory complaints. No GI or any urinary complaints. Since presentation to the ED he has not had any fever. Imaging study in his right upper extremity showed findings of osteomyelitis, and there is also presence of an effusion in his right elbow. His WBC is 3.5. His sed rate is 109. Infectious disease consultation has been requested to assist with evaluation and treatment Notes reviewed Temps ok OR C/S with MSSA path report pending Still with pain but better One loose stool No rash or itching Voiding a lot, no pain R shoulder better Antibiotics Current Medications Vancomycin Zosyn Medications (Trade) Dose Ordered Sig/Dayne Route Start Time Stop Time Status Last Admin (NS Flush) 2 ml UNSCH PRN IV FLUSH 05/31/17 23:45 06/01/17 06:00 (NS Flush) 2 ml BID IV FLUSH 06/01/17 09:00 06/04/17 08:02 (Narcan Inj) 0.4 mg UNSCH PRN IV PUSH 05/31/17 23:45 Pharmacy Profile Note 0 ml @ 0 mls/hr UNSCH OTHER 05/31/17 23:45 Piperacillin Sod/ Tazobactam Sod 100 ml @ 200 mls/hr Q6H IV 06/01/17 06:00 06/05/17 04:24 (Morphine Inj) 2 mg Q3H PRN IV PUSH 05/31/17 23:45 06/04/17 21:22 (Toradol Inj) 30 mg Q6H PRN IV PUSH 06/01/17 00:45 (Pepcid Inj) 20 mg Q12H IV PUSH 06/01/17 04:00 06/05/17 04:25 Vancomycin HCl 1500 mg/Sodium Chloride 515 ml @ 250 mls/hr Q12H IV 06/01/17 10:00 06/04/17 21:09 Lactated Ringer's 1,000 ml @ 85 mls/hr [id number] IV 06/01/17 17:27 06/05/17 04:23 (Nathalia-Colace) 1 tab BID PO 06/01/17 21:00 06/05/17 08:49 (Milk Of Andre Liq) 10 ml Q12H PRN PO 06/01/17 17:30 06/04/17 17:38 (Soldier 10-325 Mg) 1 tab Q6H PRN PO 06/01/17 17:30 (Soldier 10-325 Mg) 2 tab Q6H PRN PO 06/01/17 17:30 06/05/17 08:53 (Zofran Inj) 4 mg Q4H PRN IVP 06/01/17 17:30 (Theragran M Tab) 1 tab DAILY PO 06/02/17 09:00 06/05/17 08:49 (Benadryl) 25 mg Q6H PRN PO 06/01/17 17:30 06/02/17 03:12 (Ambien) 5 mg HS PRN PO 06/01/17 17:30 06/03/17 22:54 Miscellaneous Information SPECIFIC LAB TO BE DRAWN:[facility]... ONCE ONCE .XX 06/05/17 09:45 06/05/17 09:46 06/05/17 09:45 (Norvasc) 5 mg DAILY PO 06/04/17 12:00 06/05/17 08:49 (Miralax) 17 gm DAILY PO 06/04/17 12:00 06/05/17 08:50 (Deltasone) 20 mg BID PO 06/04/17 21:00 06/05/17 08:49 (Catapres) 0.1 mg Q6H PRN PO 06/04/17 11:30 Lines PIV Past Medical History Still's disease Asthma Treatment for cellulitis in the right elbow December 2016 Past Surgical History Left hand surgery Allergies: Coded Allergies: No Known Allergies (Verified Allergy, Unknown, 05/31/17) Objective . Vital Signs Date Time Temp Pulse Resp B/P (MAP) Pulse Ox O2 Delivery O2 Flow Rate FiO2 06/05/17 08:00 96.5 66 20 185/94 (124) 98 06/05/17 04:00 96.2 71 22 166/95 (118) 98 06/05/17 00:00 95.9 84 22 160/97 (118) 98 06/04/17 20:00 95.4 69 22 165/87 (113) 98 06/04/17 16:00 97.5 76 19 169/85 (113) 98 06/04/17 12:00 97.1 85 18 172/91 (118) 98 . Laboratory Tests Test 06/05/17 06:24 White Blood Count 10.1 TH/MM3 Red Blood Count 4.12 MIL/MM3 Hemoglobin 12.3 GM/DL Hematocrit 35.4 % Mean Corpuscular Volume 85.9 FL Mean Corpuscular Hemoglobin 29.8 PG Mean Corpuscular Hemoglobin Concent 34.7 % Red Cell Distribution Width 14.6 % Platelet Count 556 TH/MM3 Mean Platelet Volume 6.5 FL Laboratory Tests Test 06/05/17 06:24 Blood Urea Nitrogen 21 MG/DL Creatinine 0.81 MG/DL Random Glucose 113 MG/DL Calcium Level 8.8 MG/DL Magnesium Level 2.2 MG/DL Sodium Level 131 MEQ/L Potassium Level 3.9 MEQ/L Chloride Level 94 MEQ/L Carbon Dioxide Level 27.6 MEQ/L Anion Gap 9 MEQ/L Estimat Glomerular Filtration Rate 100 ML/MIN Imaging Last Impressions Upper Extremity CT 06/01/17 0000 Signed Impressions: Service Date/Time: May 03:17 - CONCLUSION: Destructive changes centered at the elbow joint with associated effusion, and this is characteristic of septic arthritis. There is cellulitis, subcutaneous edema, and an abscess of the proximal forearm. Ole Stallworth MD Shoulder X-Ray 06/01/17 0000 Signed Impressions: Service Date/Time: May 20:40 - CONCLUSION: 1. No acute bony abnormality. Tyler Goldberg MD Elbow X-Ray 05/31/172140 Signed Impressions: Service Date/Time: Wednesday, May 31, 2017 22:06 - CONCLUSION: Significant worsening of soft tissue swelling since the prior examination with interval development of lytic destructive lesions of the proximal ulna and capitellum and the possibility of septic arthritis should be entertained in the appropriate clinical setting. Malcom Gonzalez MD Physical Exam GENERAL: awake and alert, NAD SKIN: Warm and moist. Erythematous maculopapular rash in upper trunk front and back and UE are improving HEAD: Atraumatic. Normocephalic. No temporal wasting, or tenderness. EYES: [place] conjunctiva. No petechia or hemorrhage. Pupils equal, round and reactive to light. Extraocular movements full and intact. No scleral icterus. No injection or drainage. EARS, NOSE AND THROAT: Nose without bleeding or purulent nasal discharge. No sinus tenderness. Mucous membranes pink and moist. No oral lesions noted. No exudate. No oral thrush. NECK: Trachea midline. Supple and not tender, no meningeal signs CARDIOVASCULAR: Regular rate and rhythm. No murmurs, rubs or gallops heard RESPIRATORY: Clear to auscultation. Breath sounds equal bilaterally. No rales , wheezing or rhonchi ABDOMEN: Soft, non-tender, nondistended. Bowel sounds present and normoactive. No guarding. No rebound. No organomegaly. EXTREMITIES: No clubbing, cyanosis. RUE: dry dressing in his RUE, ROM about 130 degress. No calf tenderness. R shoulder better ROM. NEUROLOGICAL: Grossly non focal. PSYCHIATRIC: Normal affect, calm and cooperative. LINE: No evidence of infection Assessment & Plan Remarks IMPRESSION Cellulitis RUE, with destructive changes in elbow and has effusion Abscess R elbow with osteomyelitis, S/P surgery - C/S MSSA Pain R shoulder, better, possibly due to immobility Still's disease, with active rash, arthritis and arthralgias, not been on Rx Mild neutropenia RECOMMENDATION Change to Ancef Follow path If stable, PICC tomorrow Arrange for outpatient IV Abx and will use Rocephin - D/W CM - will need 6 weeks IV Abx Monitor progress Explained to patient D/W Fernanda Cordoba MD Jun 05, 2017 10:39
--- NOTE | 2017-06-05 10:41 | HHI.FF ---
Infusion Therapy Patient Information Patient Weight 100 kg Diagnosis: Diagnosis Abscess, Osteo R elbow, MSSA Coded Allergies: No Known Allergies (Verified Allergy, Unknown, 05/31/17) Administer Medication Ceftriaxone 2 grams IV q 24 hours Stop Treatment: Jul 16, 2017 Additional Information Venous access: PICC Line Additional Instructions [x] Peripheral flush and dressing changes per protocol [x] Implanted port and central blue line trimmer: * Implanted port: 10 ml Normal Saline followed by 5 ml Heparin 100 units/ml Heparin flush after each use and monthly to maintain. [] May leave port accessed during therapy. [] May leave peripheral site accessed for duration of therapy. [x] If patient has SOB or respiratory distress, check oxygen saturation. If less than 90% or clinical signs of respiratory distress, administer oxygen at 2 L/min. via nasal cannula and notify physician. [x] Anaphylaxis/Reaction orders: * Stop infusion. * Keep IV line open with saline flush. * Notify physician. * Monitor vital signs every 15 minutes until symptoms resolve. * Check Oxygen saturation; Oxygen at 2 L/min. via nasal cannula if less than 90% or clinical signs of respiratory distress. * Administer diphenhydramine (Benadryl) 25 mg IV STAT, (unless patient has received as pre-med). May repeat once, if necessary. * Solu-Cortef 250 mg IVP over 30-60 seconds, use 100 mg vials for each dissolution. * Epinephrine (1mg/1 ml) 0.3 mg subcutaneously or IVP now with any signs of respiratory distress. * Check with physician for new additional pre-med orders if patient is re- challenged or re-treated. [x] May remove PICC line when treatment complete, after confirming with Physician. [x] If the patient is admitted to the hospital, the ED, or transferred via [facility] , complete transfer form including medication reconciliation order sheet. Laboratory Tests Weekly Labs: CBC w/diff, Creatinine, LFT's (Hepatic function test) (labs every Monday, copy to wv) Fernanda Lezama MD Jun 05, 2017 10:41
[2017-06-05] MEDS: ceFAZolin 2 GM PREMIX 50 ML IV SCH ×2 (10:51→17:55)
[2017-06-05] MEDS ORDERED: amLODIPine BESYLATE 5 MG TAB PO ONE (11:00)
--- NOTE | 2017-06-05 11:12 | HHI.PR ---
Subjective Remarks The patient said that he was trying to do a lot of exercises recently. He knows that his blood pressure is elevated. He says he lives alone but would be able to get transportation when he is discharged. Discussed with nursing at the bedside. Objective Vitals Vital Signs Date Time Temp Pulse Resp B/P (MAP) Pulse Ox O2 Delivery O2 Flow Rate FiO2 06/05/17 08:00 96.5 66 20 185/94 (124) 98 06/05/17 04:00 96.2 71 22 166/95 (118) 98 06/05/17 00:00 95.9 84 22 160/97 (118) 98 06/04/17 20:00 95.4 69 22 165/87 (113) 98 06/04/17 16:00 97.5 76 19 169/85 (113) 98 06/04/17 12:00 97.1 85 18 172/91 (118) 98 I/O 06/04/17 06/04/17 06/04/17 06/05/17 06/05/17 06/05/17 07:00 15:00 23:00 07:00 15:00 23:00 Intake Total 900 ml 1080 ml 2415 ml Output Total 6 ml Balance 900 ml 1074 ml 2415 ml Intake Oral 800 ml 1080 ml 800 ml IV Total 100 ml 1615 ml Output Urine Total 6 ml # Voids 3 4 # Bowel Movements 1 Result Diagram: 06/05/17 0624 06/05/17 0624 Imaging Last Impressions Upper Extremity CT 06/01/17 0000 Signed Impressions: Service Date/Time: May 03:17 - CONCLUSION: Destructive changes centered at the elbow joint with associated effusion, and this is characteristic of septic arthritis. There is cellulitis, subcutaneous edema, and an abscess of the proximal forearm. Ole Stallworth MD Shoulder X-Ray 06/01/17 0000 Signed Impressions: Service Date/Time: May 20:40 - CONCLUSION: 1. No acute bony abnormality. Tyler Goldberg MD Elbow X-Ray 05/31/172140 Signed Impressions: Service Date/Time: Wednesday, May 31, 2017 22:06 - CONCLUSION: Significant worsening of soft tissue swelling since the prior examination with interval development of lytic destructive lesions of the proximal ulna and capitellum and the possibility of septic arthritis should be entertained in the appropriate clinical setting. Malcom Gonzalez MD Objective Remarks GENERAL: No distress. SKIN: Warm and dry. HEAD: Normocephalic. EYES: No scleral icterus. No injection or drainage. NECK: Supple, trachea midline. No JVD. CARDIOVASCULAR: Regular rate and rhythm without murmurs, gallops, or rubs. RESPIRATORY: Breath sounds equal bilaterally. No accessory muscle use. GASTROINTESTINAL: Abdomen soft, non-tender, nondistended. +BS. MUSCULOSKELETAL: No cyanosis, or edema. Right elbow bandaged. Distal perfusion is intact. Wiggling fingers on right. BACK: Nontender without obvious deformity. No CVA tenderness. NEURO: No gross deficits. PSYCH: Mood and affect appropriate. Medications and IVs Current Medications Medications (Trade) Dose Ordered Sig/Dayne Route Start Time Stop Time Status Last Admin (NS Flush) 2 ml UNSCH PRN IV FLUSH 05/31/17 23:45 06/01/17 06:00 (NS Flush) 2 ml BID IV FLUSH 06/01/17 09:00 06/04/17 08:02 (Narcan Inj) 0.4 mg UNSCH PRN IV PUSH 05/31/17 23:45 (Morphine Inj) 2 mg Q3H PRN IV PUSH 05/31/17 23:45 06/04/17 21:22 (Toradol Inj) 30 mg Q6H PRN IV PUSH 06/01/17 00:45 (Pepcid Inj) 20 mg Q12H IV PUSH 06/01/17 04:00 06/05/17 04:25 Lactated Ringer's 1,000 ml @ 85 mls/hr [id number] IV 06/01/17 17:27 06/05/17 04:23 (Nathalia-Colace) 1 tab BID PO 06/01/17 21:00 06/05/17 08:49 (Milk Of Magnesia Liq) 10 ml Q12H PRN PO 06/01/17 17:30 06/04/17 17:38 ([place] 10-325 Mg) 1 tab Q6H PRN PO 06/01/17 17:30 ([place] 10-325 Mg) 2 tab Q6H PRN PO 06/01/17 17:30 06/05/17 08:53 (Zofran Inj) 4 mg Q4H PRN IVP 06/01/17 17:30 (Theragran M Tab) 1 tab DAILY PO 06/02/17 09:00 06/05/17 08:49 (Benadryl) 25 mg Q6H PRN PO 06/01/17 17:30 06/02/17 03:12 (Ambien) 5 mg HS PRN PO 06/01/17 17:30 06/03/17 22:54 (Miralax) 17 gm DAILY PO 06/04/17 12:00 06/05/17 08:50 (Deltasone) 20 mg BID PO 06/04/17 21:00 06/05/17 08:49 (Catapres) 0.1 mg Q6H PRN PO 06/04/17 11:30 Cefazolin Sodium/ Dextrose 50 ml @ 100 mls/hr Q8H IV 06/05/17 11:00 06/05/17 10:51 (Norvasc) 10 mg DAILY PO 06/06/17 09:00 (Norvasc) 5 mg ONCE ONCE PO 06/05/17 11:00 06/05/17 11:01 06/05/17 11:05 A/P Problem List: (1) Septic arthritis ICD Code: M00.9 - Pyogenic arthritis, unspecified (2) 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 Sedimentation rate 109. CT elbow with osteomyelitis of the right elbow, abscess of proximal forearm. Consults placed to orthopedic surgery and ID. Appreciate assistance. Patient went for debridement with orthopedics 06/01. Cultures growing staph aureus. - cefazolin per ID. Will need a PICC line. - follow pathology. - OT. - pain control with a bowel regimen. Added Miralax for constipation. Hyponatremia Appears chronic. Improving. - follow BMP as needed. Stills Disease Chronic condition. Has not been on meds in over a year. - continue steroids. Switch to PO prednisone then taper. - outpt follow-up. HTN Exacerbated by pain. - pain control. - dc lisinopril s/t dry cough. - increase amlodipine to 10 mg daily. - clonidine as needed. Prophylaxis: As per surgical service. Discharge Planning D/c once blood pressure is better controlled, PICC line in place and antibiotics are arranged, and when cleared by surgery Neeraj Rodriguez DO Jun 05, 2017 11:12
[2017-06-05 12:00] VITALS: BP 163/90; PULSE 63; RESP 19; TEMP 96.9; O2SAT 100
[2017-06-05 16:00] VITALS: BP 154/85; PULSE 79; RESP 19; TEMP 98.4; O2SAT 99
[2017-06-05 20:00] VITALS: BP 162/81; PULSE 78; RESP 16; TEMP 97.4; O2SAT 99
[2017-06-06] VITALS: BP 164/81; PULSE 60; RESP 16; TEMP 97.8; O2SAT 99
[2017-06-06] MEDS: LACTATED RINGER'S 1000 ML INJ 1,000 ML IV SCH ×2 (03:17→15:47)
[2017-06-06] MEDS: ceFAZolin 2 GM PREMIX 50 ML IV SCH ×2 (03:17→11:19)
[2017-06-06] MEDS: FAMOTIDINE 20 MG/2 ML VIAL IV PUSH SCH ×2 (03:17→16:00)
[2017-06-06 05:12] VITALS: BP 139/83; PULSE 66
[2017-06-06] MEDS: ACETAMINOPHEN/HYDROcodone 325 MG/10 MG TAB PO PRN ×2 (05:20→11:34)
--- NOTE | 2017-06-06 07:26 | PD.ORT.PN ---
Subjective Subjective Remarks Mild pain in right elbow. Undergoing dressing changes. Note PICC line Objective Vitals Vital Signs Date Time Temp Pulse Resp B/P (MAP) Pulse Ox O2 Delivery O2 Flow Rate FiO2 06/06/17 05:12 66 139/83 (101) 06/06/17 00:00 97.8 60 16 164/81 (108) 99 06/05/17 20:00 97.4 78 16 162/81 (108) 99 06/05/17 16:00 98.4 79 19 154/85 (108) 99 06/05/17 12:00 96.9 63 19 163/90 (114) 100 06/05/17 08:00 96.5 66 20 185/94 (124) 98 I/O 06/05/17 06/05/17 06/05/17 06/06/17 06/06/17 06/06/17 07:00 15:00 23:00 07:00 15:00 23:00 Intake Total 2415 ml 50 ml 1210 ml 1050 ml Balance 2415 ml 50 ml 1210 ml 1050 ml Intake Oral 800 ml 1160 ml IV Total 1615 ml 50 ml 50 ml 1050 ml # Voids 4 7 1 # Bowel Movements 1 Result Diagram: 06/05/17 0624 06/05/17 0624 Objective Remarks Dressing dry. NVI cap refill satisfactory Assessment & Plan Ortho Post Op Day #: 5 Problem List: Assessment and Plan Pyogenic arthritis right elbow. Stills disease. Osteomyelitis of the right elbow. Surgery: Incision and drainage with arthrotomy and extensive debridement right elbow and proximal right forearm: POD #5 PLAN: Culture growing MSSA. PIC line discussed. IV antibiotics per infectious disease. Continue dressing change. We'll see in office for suture removal in approximately 2 weeks Isaac Bull MD Jun 06, 2017 07:26
[2017-06-06 08:00] VITALS: BP 148/89; PULSE 64; RESP 19; TEMP 96.4; O2SAT 100
[2017-06-06] MEDS: predniSONE 20 MG TAB PO SCH (08:58)
[2017-06-06] MEDS: MULTIVITAMINS/MINERALS THERAPEUTIC TAB PO SCH (08:59)
[2017-06-06] MEDS: DOCUSATE SODIUM 50 MG/SENNA 8.6 MG TAB PO SCH (08:59)
[2017-06-06] MEDS: POLYETHYLENE GLYCOL 17 GM PKG PO SCH (09:00)
[2017-06-06] MEDS: SODIUM CHLORIDE 0.9% FLUSH 10 ML FLUSH IV FLUSH SCH (09:00)
[2017-06-06] MEDS ORDERED: amLODIPine BESYLATE 5 MG TAB PO SCH (09:00)
--- NOTE | 2017-06-06 09:10 | HHI.PR ---
Subjective Remarks Afebrile. Pain controlled Denies cp/sob. Objective Vitals Vital Signs Date Time Temp Pulse Resp B/P (MAP) Pulse Ox O2 Delivery O2 Flow Rate FiO2 06/06/17 05:12 66 139/83 (101) 06/06/17 00:00 97.8 60 16 164/81 (108) 99 06/05/17 20:00 97.4 78 16 162/81 (108) 99 06/05/17 16:00 98.4 79 19 154/85 (108) 99 06/05/17 12:00 96.9 63 19 163/90 (114) 100 I/O 06/05/17 06/05/17 06/05/17 06/06/17 06/06/17 06/06/17 07:00 15:00 23:00 07:00 15:00 23:00 Intake Total 2415 ml 50 ml 1210 ml 1050 ml Balance 2415 ml 50 ml 1210 ml 1050 ml Intake Oral 800 ml 1160 ml IV Total 1615 ml 50 ml 50 ml 1050 ml # Voids 4 7 1 # Bowel Movements 1 Result Diagram: 06/05/17 0624 06/05/17 0624 Imaging Last Impressions Upper Extremity CT 06/01/17 0000 Signed Impressions: Service Date/Time: May 03:17 - CONCLUSION: Destructive changes centered at the elbow joint with associated effusion, and this is characteristic of septic arthritis. There is cellulitis, subcutaneous edema, and an abscess of the proximal forearm. Ole Stallworth MD Shoulder X-Ray 06/01/17 0000 Signed Impressions: Service Date/Time: May 20:40 - CONCLUSION: 1. No acute bony abnormality. Tyler Goldberg MD Elbow X-Ray 05/31/172140 Signed Impressions: Service Date/Time: Wednesday, May 31, 2017 22:06 - CONCLUSION: Significant worsening of soft tissue swelling since the prior examination with interval development of lytic destructive lesions of the proximal ulna and capitellum and the possibility of septic arthritis should be entertained in the appropriate clinical setting. Malcom Gonzalez MD Objective Remarks GENERAL: No distress. SKIN: Warm and dry. HEAD: Normocephalic. EYES: No scleral icterus. No injection or drainage. NECK: Supple, trachea midline. No JVD. CARDIOVASCULAR: Regular rate and rhythm without murmurs, gallops, or rubs. RESPIRATORY: Breath sounds equal bilaterally. No accessory muscle use. GASTROINTESTINAL: Abdomen soft, non-tender, nondistended. +BS. MUSCULOSKELETAL: No cyanosis, or edema. Right elbow bandaged. Distal perfusion is intact. Wiggling fingers on right. BACK: Nontender without obvious deformity. No CVA tenderness. NEURO: No gross deficits. PSYCH: Mood and affect appropriate. Medications and IVs Current Medications Medications (Trade) Dose Ordered Sig/Dayne Route Start Time Stop Time Status Last Admin (NS Flush) 2 ml UNSCH PRN IV FLUSH 05/31/17 23:45 06/01/17 06:00 (NS Flush) 2 ml BID IV FLUSH 06/01/17 09:00 06/04/17 08:02 (Narcan Inj) 0.4 mg UNSCH PRN IV PUSH 05/31/17 23:45 (Morphine Inj) 2 mg Q3H PRN IV PUSH 05/31/17 23:45 06/04/17 21:22 (Toradol Inj) 30 mg Q6H PRN IV PUSH 06/01/17 00:45 (Pepcid Inj) 20 mg Q12H IV PUSH 06/01/17 04:00 06/06/17 03:17 Lactated Ringer's 1,000 ml @ 85 mls/hr [id number] IV 06/01/17 17:27 06/06/17 03:17 (Nathalia-Colace) 1 tab BID PO 06/01/17 21:00 06/06/17 08:59 (Milk Of Magnesia Liq) 10 ml Q12H PRN PO 06/01/17 17:30 06/04/17 17:38 ([place] 10-325 Mg) 1 tab Q6H PRN PO 06/01/17 17:30 ([place] 10-325 Mg) 2 tab Q6H PRN PO 06/01/17 17:30 06/06/17 05:20 (Zofran Inj) 4 mg Q4H PRN IVP 06/01/17 17:30 (Theragran M Tab) 1 tab DAILY PO 06/02/17 09:00 06/06/17 08:59 (Benadryl) 25 mg Q6H PRN PO 06/01/17 17:30 06/02/17 03:12 (Ambien) 5 mg HS PRN PO 06/01/17 17:30 06/03/17 22:54 (Miralax) 17 gm DAILY PO 06/04/17 12:00 06/06/17 09:00 (Deltasone) 20 mg BID PO 06/04/17 21:00 06/06/17 08:58 (Catapres) 0.1 mg Q6H PRN PO 06/04/17 11:30 Cefazolin Sodium/ Dextrose 50 ml @ 100 mls/hr Q8H IV 06/05/17 11:00 06/06/17 03:17 (Norvasc) 10 mg DAILY PO 06/06/17 09:00 06/06/17 08:59 Urinary Catheter: No Vascular Central Line Catheter: No A/P Problem List: (1) Septic arthritis ICD Code: M00.9 - Pyogenic arthritis, unspecified (2) 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 Sedimentation rate 109. CT elbow with osteomyelitis of the right elbow, abscess of proximal forearm. Consults placed to orthopedic surgery and ID. Appreciate assistance. Patient went for debridement with orthopedics 06/01. Cultures growing MSSA. - cefazolin per ID. Will need a PICC line. - follow pathology. - OT. - pain control with a bowel regimen. Added Miralax for constipation. Hyponatremia Appears chronic. Improving. - follow BMP as needed. Stills Disease Chronic condition. Has not been on meds in over a year. - continue steroids. On oral prednisone. - outpt follow-up. HTN Exacerbated by pain. - pain control. - dc lisinopril s/t dry cough. - increase amlodipine to 10 mg daily. - clonidine as needed. - 06/06 Bp better this am. continue amlodipine 10 mg daily. Prophylaxis:SCD's. encourage ambulation. Chemoprophylaxis as per surgical service. Discharge Planning DC after PIC line placed and outpatient antibiotics set up. Dayday Nash MD Jun 06, 2017 09:10
[2017-06-06 10:00] LABS: HEMATOCRIT 41.2 % (39.0-51.0); MEAN CELL VOLUME 87.9 FL (80.0-100.0); MEAN CORPUSCULAR HEMOGLOBIN 29.9 PG (27.0-34.0); MEAN PLATELET VOLUME 6.5 FL (7.0-11.0); PLATELET COUNT 545 TH/MM3 (150-450); RED BLOOD COUNT 4.69 MIL/MM3 (4.50-5.90); RED CELL DISTRIBUTION WIDTH 14.6 % (11.6-17.2); WHITE BLOOD COUNT 12.4 TH/MM3 (4.0-11.0)
[2017-06-06 10:06] LABS: BICARBONATE 27.9 MEQ/L (21.0-32.0); CALCIUM 9.4 MG/DL (8.5-10.1); CREATININE 0.85 MG/DL (0.60-1.30)
[2017-06-06 12:00] VITALS: BP 152/88; PULSE 69; RESP 20; TEMP 98.4; O2SAT 97
--- NOTE | 2017-06-06 12:53 | HHI.IDPN ---
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 His right elbow started having problem back in December 2016. He apparently had a little bit of injury, and developed redness and swelling. He presented to the emergency room at that time, and he was treated for cellulitis. Since that time he has had problem with range of motion in that elbow, and has had recurrent swelling and pain associated with it. He has not really had any diagnostic testing on that elbow. Patient also has had this skin rash that comes and goes as well and part of his still's disease. Recently probably in the last 1 week, he has developed swelling pain and decreased range of motion on his right elbow, as well as recurrence of his rash. No documented fevers. He also has been having problem with his right shoulder since he is not really doing moving much his right upper extremity. No specific respiratory complaints. No GI or any urinary complaints. Since presentation to the ED he has not had any fever. Imaging study in his right upper extremity showed findings of osteomyelitis, and there is also presence of an effusion in his right elbow. His WBC is 3.5. His sed rate is 109. Infectious disease consultation has been requested to assist with evaluation and treatment Notes reviewed Temps ok OR C/S with MSSA path report with osteomyelitis No rash or itching R shoulder better Antibiotics Current Medications Ancef Medications (Trade) Dose Ordered Sig/Dayne Route Start Time Stop Time Status Last Admin (NS Flush) 2 ml UNSCH PRN IV FLUSH 05/31/17 23:45 06/01/17 06:00 (NS Flush) 2 ml BID IV FLUSH 06/01/17 09:00 06/04/17 08:02 (Narcan Inj) 0.4 mg UNSCH PRN IV PUSH 05/31/17 23:45 (Morphine Inj) 2 mg Q3H PRN IV PUSH 05/31/17 23:45 06/04/17 21:22 (Pepcid Inj) 20 mg Q12H IV PUSH 06/01/17 04:00 06/06/17 03:17 Lactated Ringer's 1,000 ml @ 85 mls/hr [id number] IV 06/01/17 17:27 06/06/17 03:17 (Nathalia-Colace) 1 tab BID PO 06/01/17 21:00 06/06/17 08:59 (Milk Of Magnbrandyn Liq) 10 ml Q12H PRN PO 06/01/17 17:30 06/04/17 17:38 ([place] 10-325 Mg) 1 tab Q6H PRN PO 06/01/17 17:30 ([place] 10-325 Mg) 2 tab Q6H PRN PO 06/01/17 17:30 06/06/17 11:34 (Zofran Inj) 4 mg Q4H PRN IVP 06/01/17 17:30 (Theragran M Tab) 1 tab DAILY PO 06/02/17 09:00 06/06/17 08:59 (Benadryl) 25 mg Q6H PRN PO 06/01/17 17:30 06/02/17 03:12 (Ambien) 5 mg HS PRN PO 06/01/17 17:30 06/03/17 22:54 (Miralax) 17 gm DAILY PO 06/04/17 12:00 06/06/17 09:00 (Deltasone) 20 mg BID PO 06/04/17 21:00 06/06/17 08:58 (Catapres) 0.1 mg Q6H PRN PO 06/04/17 11:30 (Norvasc) 10 mg DAILY PO 06/06/17 09:00 06/06/17 08:59 Ceftriaxone Sodium 2000 mg/ Sodium Chloride 100 ml @ 200 mls/hr Q24H IV 06/06/17 12:45 UNV Lines PIV Past Medical History Still's disease Asthma Treatment for cellulitis in the right elbow December 2016 Past Surgical History Left hand surgery Allergies: Coded Allergies: No Known Allergies (Verified Allergy, Unknown, 05/31/17) Objective . Vital Signs Date Time Temp Pulse Resp B/P (MAP) Pulse Ox O2 Delivery O2 Flow Rate FiO2 06/06/17 08:00 96.4 64 19 148/89 (108) 100 06/06/17 05:12 66 139/83 (101) 06/06/17 00:00 97.8 60 16 164/81 (108) 99 06/05/17 20:00 97.4 78 16 162/81 (108) 99 06/05/17 16:00 98.4 79 19 154/85 (108) 99 . Laboratory Tests Test 06/05/17 06:24 06/06/17 09:13 White Blood Count 10.1 TH/MM3 12.4 TH/MM3 Red Blood Count 4.12 MIL/MM3 4.69 MIL/MM3 Hemoglobin 12.3 GM/DL 14.0 GM/DL Hematocrit 35.4 % 41.2 % Mean Corpuscular Volume 85.9 FL 87.9 FL Mean Corpuscular Hemoglobin 29.8 PG 29.9 PG Mean Corpuscular Hemoglobin Concent 34.7 % 34.0 % Red Cell Distribution Width 14.6 % 14.6 % Platelet Count 556 TH/MM3 545 TH/MM3 Mean Platelet Volume 6.5 FL 6.5 FL Laboratory Tests Test 06/05/17 06:24 06/06/17 09:13 Blood Urea Nitrogen 21 MG/DL 18 MG/DL Creatinine 0.81 MG/DL 0.85 MG/DL Random Glucose 113 MG/DL 176 MG/DL Calcium Level 8.8 MG/DL 9.4 MG/DL Magnesium Level 2.2 MG/DL Sodium Level 131 MEQ/L 130 MEQ/L Potassium Level 3.9 MEQ/L 4.3 MEQ/L Chloride Level 94 MEQ/L 93 MEQ/L Carbon Dioxide Level 27.6 MEQ/L 27.9 MEQ/L Anion Gap 9 MEQ/L 9 MEQ/L Estimat Glomerular Filtration Rate 100 ML/MIN 95 ML/MIN Imaging Last Impressions Upper Extremity CT 06/01/17 0000 Signed Impressions: Service Date/Time: May 03:17 - CONCLUSION: Destructive changes centered at the elbow joint with associated effusion, and this is characteristic of septic arthritis. There is cellulitis, subcutaneous edema, and an abscess of the proximal forearm. Ole Stallworth MD Shoulder X-Ray 06/01/17 0000 Signed Impressions: Service Date/Time: May 20:40 - CONCLUSION: 1. No acute bony abnormality. Tyler Goldberg MD Elbow X-Ray 05/31/172140 Signed Impressions: Service Date/Time: Wednesday, May 31, 2017 22:06 - CONCLUSION: Significant worsening of soft tissue swelling since the prior examination with interval development of lytic destructive lesions of the proximal ulna and capitellum and the possibility of septic arthritis should be entertained in the appropriate clinical setting. Malcom Gonzalez MD Physical Exam GENERAL: awake and alert, NAD SKIN: Warm and moist. EAsh better HEAD: Atraumatic. Normocephalic. No temporal wasting, or tenderness. EYES: [place] conjunctiva. No petechia or hemorrhage. Pupils equal, round and reactive to light. Extraocular movements full and intact. No scleral icterus. No injection or drainage. EARS, NOSE AND THROAT: Nose without bleeding or purulent nasal discharge. No sinus tenderness. Mucous membranes pink and moist. No oral lesions noted. No exudate. No oral thrush. NECK: Trachea midline. Supple and not tender, no meningeal signs CARDIOVASCULAR: Regular rate and rhythm. No murmurs, rubs or gallops heard RESPIRATORY: Clear to auscultation. Breath sounds equal bilaterally. No rales , wheezing or rhonchi ABDOMEN: Soft, non-tender, nondistended. Bowel sounds present and normoactive. No guarding. No rebound. No organomegaly. EXTREMITIES: No clubbing, cyanosis. RUE: dry dressing in his RUE, ROM about 130 degress. No calf tenderness. R shoulder better ROM. NEUROLOGICAL: Grossly non focal. PSYCHIATRIC: Normal affect, calm and cooperative. LINE: No evidence of infection Assessment & Plan Remarks IMPRESSION Cellulitis RUE, with osteomyelitis elbow Abscess R elbow with osteomyelitis, S/P surgery - C/S MSSA Pain R shoulder, better, possibly due to immobility Still's disease, with active rash, arthritis and arthralgias, not been on Rx Mild neutropenia RECOMMENDATION PICC Abx form has been filled out Start IV Rocephin today Labs weekly: CBC, creat LFT while on Abx D/C once arrangements made D/W CM D/W Fernanda White MD Jun 06, 2017 12:53
[2017-06-06] MEDS ORDERED: SODIUM CHLORIDE 0.9% FLUSH 10 ML FLUSH IV FLUSH PRN (15:15)
[2017-06-06] MEDS ORDERED: PROT40TA PO (15:28)
[2017-06-06] MEDS ORDERED: THERM PO (15:28)
[2017-06-06] MEDS ORDERED: HYDR-3583 PO (15:28)
[2017-06-06] MEDS ORDERED: AMLO5 PO (15:28)
[2017-06-06] MEDS ORDERED: PRED10PA2 PO (15:28)
--- NOTE | 2017-06-06 15:52 | HHI.DCPOC ---
Discharge Care Plan Diagnosis: (1) Uncontrolled hypertension (2) MRSA bacteremia (3) HTN (hypertension) (4) Diabetes (5) Osteomyelitis of right elbow (6) Still's disease Goals to Promote Your Health * To prevent worsening of your condition and complications * To maintain your health at the optimal level Directions to Meet Your Goals Take your medications as prescribed Follow your dietary instruction Follow activity as directed Keep your appointments as scheduled Take your immunizations and boosters as scheduled If your symptoms worsen call your PCP, if no PCP go to Urgent Care Center or Emergency Room Smoking is Dangerous to Your Health. Avoid second hand smoke Call the 24-hour hour crisis hotline for domestic abuse at Dayday Nash MD Jun 06, 2017 15:52
--- NOTE | 2017-06-06 15:53 | HHI.DS ---
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 He states for the last week his symptoms have become worse. He states the pain to his right elbow is throbbing, constant, 8/10, worse with movement with radiation up his arm. No associated symptoms and pain medications has helped. He has had fever and chills at home. He does not take medication for his stills disease due to lack of insurance. He state Plaquenil use to help but it was making his eye sight bad so he stopped tacking it. He denies any chest pain, or sob. CBC/BMP: 06/06/17 0913 06/06/17 0913 Significant Findings Laboratory Tests Test 06/05/17 06:24 06/05/17 09:39 06/06/17 09:13 Red Blood Count 4.12 MIL/MM3 (4.50-5.90) Hemoglobin 12.3 GM/DL (13.0-17.0) Hematocrit 35.4 % (39.0-51.0) Platelet Count 556 TH/MM3 (150-450) 545 TH/MM3 (150-450) Mean Platelet Volume 6.5 FL (7.0-11.0) 6.5 FL (7.0-11.0) Blood Urea Nitrogen 21 MG/DL (7-18) Random Glucose 113 MG/DL (74-106) 176 MG/DL (74-106) Sodium Level 131 MEQ/L (136-145) 130 MEQ/L (136-145) Chloride Level 94 MEQ/L (98-107) 93 MEQ/L (98-107) Vancomycin Level Trough 10.7 MCG/ML (5.0-10.0) White Blood Count 12.4 TH/MM3 (4.0-11.0) PE at Discharge GENERAL: No distress. SKIN: Warm and dry. HEAD: Normocephalic. EYES: No scleral icterus. No injection or drainage. NECK: Supple, trachea midline. No JVD. CARDIOVASCULAR: Regular rate and rhythm without murmurs, gallops, or rubs. RESPIRATORY: Breath sounds equal bilaterally. No accessory muscle use. GASTROINTESTINAL: Abdomen soft, non-tender, nondistended. +BS. MUSCULOSKELETAL: No cyanosis, or edema. Right elbow bandaged. Distal perfusion is intact. Wiggling fingers on right. BACK: Nontender without obvious deformity. No CVA tenderness. NEURO: No gross deficits. PSYCH: Mood and affect appropriate. Pt Condition on Discharge: Stable Discharge Disposition: Discharge Home Discharge Instructions DIET: Follow Instructions for: As Tolerated, No Restrictions Activities you can perform: Regular-No Restrictions Activities to Avoid: Contact Sports Dayday Nash MD Jun 06, 2017 15:53
--- NOTE | 2017-06-06 16:05 | RADRPT ---
EXAM DATE/TIME: 06/06/2017 15:24 [facility] COMPARISON: No previous studies available for comparison. INDICATIONS : PICC line placement. MEDICAL HISTORY : None. SURGICAL HISTORY : None. ENCOUNTER: Subsequent ACUITY: 3 days PAIN SCORE: 0/10 LOCATION: Bilateral chest FINDINGS: A single view of the chest demonstrates the lungs to be symmetrically aerated without evidence of mas s, infiltrate or effusion. The cardiomediastinal contours are unremarkable. Osseous structures are intact. PICC line catheter tip projects at the origin of the superior vena cava. CONCLUSION: 1. The lungs are clear. 2. PICC line catheter tip at the origin of the superior vena cava. Lavon Loya MD on June 06, 2017 at 16:02 Board Certified Radiologist. This report was verified electronically.
[2017-06-06] MEDS ORDERED: cefTRIAXone INJ 2,000 MG in SODIUM CHLORIDE 0.9% INJ 100 ML IV SCH (18:00)
[2017-06-07] MEDS ORDERED: SODIUM CHLORIDE 0.9% FLUSH 10 ML FLUSH IV FLUSH SCH (09:00)
[2017-06-08] MEDS ORDERED: CEFT2INJ2 IV (13:11)
== END 2017-06-06 19:00 | disposition home or self-care (01) | DRG 854 ==
LOC: NEPC 21:21 → NEDA 23:23 → NEDH 06-01 06:21 → NEPGCP 06-01 12:37 → OBSVTOIN 06-01 17:32 → N07B 06-01 18:10 → N07A 06-01 19:20
PROVIDERS: ADMIT Hospitalist; ATTEND Hospitalist
PROC: 0PBH0ZZ Excision of Right Radius, Open Approach (ICD-10-PCS; 2017-06-01)
PROC: 0PBH0ZX Excision of Right Radius, Open Approach, Diagnostic (ICD-10-PCS; 2017-06-01)
PROC: 0RBL0ZZ Excision of Right Elbow Joint, Open Approach (ICD-10-PCS; principal; 2017-06-01 16:32)
PROC: 02HV33Z Insertion of Infusion Device into Superior Vena Cava, Percutaneous Approach (ICD-10-PCS; 2017-06-06)
DX: A41.01 Sepsis due to Methicillin susceptible Staphylococcus aureus (principal); M00.9 Pyogenic arthritis, unspecified; E11.69 Type 2 diabetes mellitus with other specified complication; M86.18 Other acute osteomyelitis, other site; L03.113 Cellulitis of right upper limb; L02.413 Cutaneous abscess of right upper limb; E87.1 Hypo-osmolality and hyponatremia; F17.210 Nicotine dependence, cigarettes, uncomplicated; B95.62 Methicillin resistant Staphylococcus aureus infection as the cause of diseases classified elsewhere; J45.909 Unspecified asthma, uncomplicated; M08.2 Juvenile rheumatoid arthritis with systemic onset; R21 Rash and other nonspecific skin eruption; M25.421 Effusion, right elbow; I10 Essential (primary) hypertension; D72.819 Decreased white blood cell count, unspecified; R00.0 Tachycardia, unspecified; K59.00 Constipation, unspecified; M19.90 Unspecified osteoarthritis, unspecified site; M25.511 Pain in right shoulder
CPT/HCPCS: 36569; 71045; 73030; 73080; 73200; 76937; 80048; 80053; 80202; 82565; 83605; 83735; 85025; 85027; 85652; 86140; 86403; 87015; 87040; 87070; 87077; 87102; 87116; 87186; 87205; 87206; 88305; 88307; 88311; 93005; 94150; 96361; 96365; 96375; G0378; J0690; J0696; J1580; J2270; J2405; J2543; J2920; J2930; J3010; J3370; J7030; J7040; J7050; J7120; J7512